=== PATIENT | female | born 1950 | race Caucasian/White ===

== ENCOUNTER 2016-12-16 09:59 | Inpatient (IN) ==
[2016-12-16] MEDS ORDERED: methylPREDNISolone SOD SUC 125 MG/2 ML VIAL IV STA (11:21)
[2016-12-16] MEDS ORDERED: cefTRIAXone 1,000 MG in SODIUM CHLORIDE 0.9% 100 ML IV STA (11:21)
[2016-12-16] MEDS ORDERED: SODIUM CHLORIDE 0.9% 500 ML IV STA (11:21)
[2016-12-16] MEDS ORDERED: ONDANSETRON 4 MG/2 ML VIAL IV STA (11:21)
[2016-12-16] MEDS ORDERED: ONDANSETRON 4 MG/2 ML VIAL ONE (11:25)
[2016-12-16] MEDS ORDERED: methylPREDNISolone SOD SUC 125 MG/2 ML VIAL ONE (11:25)
[2016-12-16] MEDS ORDERED: cefTRIAXone 1,000 MG VIAL ONE (11:25)
[2016-12-16] MEDS ORDERED: ALBUTEROL 2.5 MG/3 ML NEB RESP TX SCH (11:30)
[2016-12-16 11:32] LABS: Basophils % 0.6 % (0.0-0.8); Hematocrit 36.4 VOL% (35.7-47.0); Hemoglobin 12.1 GM/DL (12.0-16.0); Immature Granulocytes % 0.2 %; Immature Granulocytes Absolute 0.01 #; Lymphocytes # 0.5 10*3/uL (1.4-4.0); Lymphocytes % 9.5 % (21.3-54.2); Mean Corpuscular HGB Conc 33.2 GM/DL (32-36); Mean Corpuscular Hemoglobin 32 PG (27-34); Mean Corpuscular Volume 95.8 FL (87-102); Mean Platelet Volume 10.7 FL (9.6-12.0); Monocytes # 1.2 10*3/uL (0.11-0.8); Monocytes % 21.1 % (1.7-12.7); Neutrophils # 3.7 10*3/uL (1.4-7.4); Neutrophils % 68.6 % (38.7-73.9); Platelet Count 172 T/CUMM (130-400); Red Cell Distribution Width 13.6 % (9.3-17.3); White Blood Count 5.5 T/CUMM (4-12)
[2016-12-16 11:38] LABS: PT Patient Result 10.9 SECS
--- NOTE | 2016-12-16 11:44 | Emergency Department Note ---
IClaribel Emily, am scribing for, and in the presence of, Mansoor Sterling MD 11: 20. IAsher Charles R, MD, personally performed the services described in this documentation, ascribed by Fara Sanford in my presence, and it is both accurate and complete . Arrival - Arrival Chief Complaint: Shortness of Breath Stated Complaint: SOB,weak,low O2 ED Nursing Triage Note: PT C/O SHORTNESS OF BREATH AND WEAKNESS X2 DAYS. 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 DAUGHTER STATES O2 SAT BEFORE LEAVING HOME WAS 67%. PT UNAWARE OF INCREASED TEMP TAKEN AT TRIAGE. Mode of Arrival: Wheelchair Limitations: No Limitations Source: Patient, Family (daughter) Time Seen by Provider: 12/16/16 10:44 - History of Present Illness HPI Narrative: Pt is a 66 y/o female who came to ED with c/o SOB that has been ongoing for past 2 days. Pt reports using at home O2 2L but no relief. She is a former smoker. Pt has associated sxs of coughing (nothing coming up), wheezing, and mouth breathing, but denies chest pain. Pt has fever in ED of 101.9, but was unaware of fever at home or even having it. PMHx of CAD: History of RCA stent in October 2013, Alzheimer's, COPD uses inhalers, bronchitis, PNA. Onset (ago): day(s) Consistency: constant Severity: moderate Severity scale (1-10): 6 Quality: fullness Allergies/Adverse Reactions: Allergies Allergy/AdvReac Type Severity Reaction Status Date / Time No Known Allergies Allergy Verified 12/16/16 10:14 Home Medications: Home Medications Medication Instructions Recorded Confirmed Type Albuterol Sulfate [Ventolin HFA] 2 puff INH QID 08/02/14 04/10/16 History Amlodipine Besylate/Benazepril 5 each PO DAILY 08/02/14 04/10/16 History [Lotrel 10-20 mg Capsule] Aspirin [Ecotrin] 81 mg PO DAILY 08/02/14 04/10/16 History Citalopram [CeleXA] 40 mg PO DAILY 08/02/14 04/10/16 History Donepezil [Aricept] 10 mg PO BEDTIME 08/02/14 04/10/16 History Levothyroxine Tab [Synthroid Tab] 50 mcg PO DAILY@0700 08/02/14 04/10/16 History Memantine [Namenda] 10 mg PO BID 08/02/14 04/10/16 History Methocarbamol 750 mg PO Q8H 08/02/14 04/10/16 History Nitroglycerin Sl Tab [Nitrostat] 0.4 mg SL Q5M PRN 08/02/14 04/10/16 History Potassium Chloride [Klor-Con 10] 10 meq PO DAILY 08/02/14 04/10/16 History QUEtiapine [SEROquel] 25 mg PO DAILY 08/02/14 04/10/16 History Rosuvastatin [Crestor] 10 mg PO DAILY 08/02/14 04/10/16 History Tiotropium Inhalation [Spiriva] 18 mcg INH DAILY 08/02/14 04/10/16 History Tramadol HCl [Tramadol Tab] 50 mg PO BID 08/02/14 04/10/16 History Folic Acid Tab 1 mg PO DAILY 08/08/14 04/10/16 History Ferrous Sulfate 325 mg PO BID 06/01/15 04/10/16 History B12/Levomefolate Calcium/B-6 500 mcg PO DAILY 04/10/16 04/10/16 History [Foltx Tablet] Ondansetron Tab [Zofran Tab] 4 mg PO Q6H PRN 04/10/16 04/10/16 History Omeprazole [Prilosec] 40 mg PO BID #60 capsule 04/12/16 Rx Review of System - Review of System 12 point system: reviewed and no additional remarkable complaints except as stated - Review of System Constitutional: Absent: chills, fever (unaware of fever at home) Respiratory: Present: cough, respiratory distress (dyspnea; mouth breathing), wheezing Cardiovascular: Absent: chest pain Gastrointestinal: Absent: abdominal pain, nausea, vomiting Skin: Absent: rash Neurological: Absent: headache Medical,Surgical,& Family Hx - Medical History Cardio: History of: CAD (History of RCA stent in October 2013), Hypertension Psychological: History of: Depression Neurology: History of: Dementia (Alzheimer's) No history of: Seizures HEENT: History of: Eye Problem (CATARACTS), Dental Problems (DENTURES) Endocrine: History of: Thyroid Disorder (takes medication) Rheumatology: History of;: Rheumatoid Arthritis Respiratory: History of: Bronchitis, COPD (uses inhalers), Pneumonia Gastrointestinal: History of: Gastrointestinal Bleed Musculoskeletal: History of: Back/Neck Problems (arthritis) Hematology: History of: Anemia, Bleeding Problems (blood thinners post cardiac stent) Other: History of: 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) - Surgical History Cardiac Surgeries: Sugical HX of: Cardiac Catheterization (1 stent in October [address] SILVA) Thoracic Surgeries: Patient denies;: Organ Transplant, Lobectomy Neurologic Surgeries: Patient denies: Neurologic Surgery HEENT Surgeries: Surgical HX of: Eye Surgery (carlos cataract) Abdominal Surgeries: Surgical HX of: Abdominal Surgery, Cholecystectomy, Colonoscopy, EGD Reproductive Surgeries: Surgical HX of;: Tubal Ligation Patient denies;: Gynecologic Surgery Comment Only: Breast Surgery (R BREAST BX) Orthopedic Surgeries: Surgical HX of;: Orthopedic Surgery (right broken leg) - Family History Family History: Reports;: Family Heart Disease (father and brother), Family Hypertension (mother) Denies;: Family Anesthesia Reaction - Social History Smoking Status: Current every day smoker Frequency of Alcohol Use: None Type of Drug Use: None Marital Status: Single Lives With:: Alone Functional capacity: independent ambulation Exam Vital Signs: Vital Signs Temperature 101.9 F H 12/16/16 10:38 Pulse Rate 86 12/16/16 10:38 Respiratory Rate 20 12/16/16 10:38 Blood Pressure 147/55 12/16/16 10:38 O2 Sat by Pulse Oximetry 77 L 12/16/16 10:09 - General General appearance: alert, in no apparent distress, other (skinny; temporal wasting) - Head Head exam: Present: atraumatic, normocephalic - Eye Eye exam: Present: PERRL, EOMI - ENT ENT exam: Present: mucous membranes moist. Absent: mucous membranes dry - Neck Neck exam: Present: full ROM, trachea midline - Chest Chest inspection: Present: symmetric chest wall rise - Respiratory Respiratory exam: Present: rales, rhonchi (coarse, harsh rhonchi; barely moving any air), wheezes. Absent: normal lung sounds bilaterally (decreased breath sounds, bilaterally) - Cardiovascular Cardiovascular exam: Present: regular rate, normal rhythm, normal heart sounds - Extremities Exam Extremities exam: Present: full ROM. Absent: pedal edema - Neurological Exam Neurological exam: Present: alert, oriented X3, CN II-XII intact. Absent: motor sensory deficit - Psychiatric Psychiatric exam: Present: normal affect, normal mood - Skin Skin exam: Present: warm, dry Course - Consultations Consultation #1: Dr. Carranza will admit patient Time: 13:13 Results - Labs CBC & BMP: 12/16/16 10:33 12/16/16 10:33 Lab Results: I have reviewed the patients labs Critical Care Time Critical Care Time: Yes Total Critical Care Time: 60 Disposition Clinical Impression: COPD (chronic obstructive pulmonary disease), Acute dyspnea, Fever, Hypoxia, Pneumonia Case discussed with: patient, patient's family Disposition: Still a Patient Condition: Guarded Time of Disposition: 13:15
[2016-12-16 11:48] LABS: Alanine Aminotransferase 21 U/L (13-56); Alkaline Phosphatase 85 U/L (45-117); Aspartate Amino Transferase 13 U/L (0-37); Bilirubin,Total < 0.39 MG/DL (0.2-1.0); Blood Urea Nitrogen 41 MG/DL (7-18); Calcium 10.2 MG/DL (8.5-10.1); Total Protein 8.3 G/DL (6.4-8.3)
[2016-12-16 11:49] LABS: Glucose 148 MG/DL (74-106); Magnesium 2.1 MG/DL (1.8-2.4); Osmolality,Calculated 289.5 MOS/KG (273-304); Potassium 4.3 MMOL/L (3.5-5.1); Sodium 139 MMOL/L (136-145); Troponin I Only < 0.015 NG/ML (0.00-0.045)
--- NOTE | 2016-12-16 11:56 | XRay Report ---
Portable chest Date: 12/16/2016 Clinical history: Shortness of breath Comparison: 04/10/2016 Technique: Portable AP sitting chest Findings: The heart is normal in size with calcification in the aortic knob. The lungs are overexpanded with progressive diffuse perihilar parenchymal findings extending to the lung bases. Stable mediastinum and osseous structures. Impression: COPD/bullous emphysema with progressive mild CHF/pneumonitis. PROCEDURE INTERPRETED AT [facility] DEPARTMENT OF RADIOLOGY Final Report Signed by: Dr. Scarlet Greene
[2016-12-16 12:04] LABS: Lactic Acid 1.1 MMOL/L (0.4-2.0)
[2016-12-16 12:06] LABS: Band Neutrophils 2 % (0-10); Hypochromasia 2+; Lymphocytes 6 % (20-55); Microcytosis 2+; Platelet Estimate Adequate; Segmented Neutrophils 73 % (50-85); Total Cells Counted 100
[2016-12-16 12:16] LABS: ABG Base Excess 2.7 MMOL/L (-2.5-2.5); ABG HCO3 26.8 MMOL/L (20-26); ABG Oxygen Saturation 99.4 % (95-100); ABG PCO2 53.8 MM HG (35-48); ABG PH 7.345 (7.35-7.45); ABG TCO2 26.6 MMOL/L (23-27)
[2016-12-16] MEDS ORDERED: ACETAMINOPHEN 500 MG TABLET PO STA (12:52)
--- NOTE | 2016-12-16 14:00 | Order Completion Report ---
See report scanned to EMR
[2016-12-16] MEDS ORDERED: ACETAMINOPHEN 500 MG TABLET ONE (14:04)
[2016-12-16 14:16] LABS: Apearance,Urine Slightly Hazy (Clear); Bacteria,Urine Many /HPF (Few); Bilirubin,Urine Negative (Negative); Blood, Urine Moderate mg/dL (Negative); Glucose,Urine (UA) Negative (Negative); Hyaline Casts,Urine 6 /LPF (0-3); Ketones,Urine 5 mg/dL (Negative); Mucus,Urine Moderate /LPF (Occasional); Nitrite,Urine Negative (Negative); Protein,Urine 30 MG/DL; RBC,Urine <1 /HPF (0-4); Urine Color Yellow (Yellow); Urine Specific Gravity 1.018 (1.001-1.035); WBC,Urine 1 /HPF (0-6)
[2016-12-16] MEDS ORDERED: MORPHINE 2 MG/1 ML SYRINGE IV PRN (14:56)
[2016-12-16] MEDS ORDERED: ONDANSETRON 4 MG/2 ML VIAL IV PRN (14:56)
[2016-12-16] MEDS ORDERED: ENOXAPARIN 30 MG/0.3 ML SYRINGE SUBCUT SCH (15:00)
[2016-12-16] MEDS ORDERED: INFLUENZA VIRUS VACCINE 0.5 ML SYRINGE IM ONE (15:08)
[2016-12-16] MEDS ORDERED: PNEUMOCOCCAL VACCINE (13 VALENT) 0.5 ML SYRINGE IM ONE (15:08)
[2016-12-16] MEDS: methylPREDNISolone SOD SUC 40 MG/1 ML VIAL IV SCH ×2 (15:44→23:57)
[2016-12-16] MEDS: SODIUM CHLORIDE 0.9% 1,000 ML IV SCH (16:06)
[2016-12-16] MEDS: AZITHROMYCIN INJ 500 MG in SODIUM CHLORIDE 0.9% 250 ML IV SCH (16:07)
[2016-12-16] MEDS ORDERED: ONDANSETRON 4 MG TABLET PO PRN (16:42)
--- NOTE | 2016-12-16 16:49 | Internal Med History&Physical ---
Assessment and Plan (1) Pneumonia Status: Acute Assessment and plan: 66-year-old female admitted to acute care * Pneumonia. Patient appears to have bilateral pneumonia with elevated temp. She has been started on broad-spectrum antibiotics after cultures were done. She will require oxygen and nebulizer treatments. * Acute exacerbation of COPD. Patient has bilateral rhonchi. Her initial PCO2 was quite low. She does retain some CO2. She has been started on IV steroids. * Hypertension. Blood pressure is low. Will hold her blood pressure medications for now * Coronary artery disease. Stable * Squamous cell carcinoma of vocal cord. She had recent workup which was negative * Hypothyroidism. Will continue thyroid replacement * Discussed with patient again about smoking cessation * Discussed with patient and her family Current Visit: Yes (2) COPD with acute exacerbation Status: Acute Current Visit: Yes (3) Alzheimer's dementia Status: Acute Current Visit: No (4) Coronary artery disease Status: Acute Current Visit: No (5) Hypertension Status: Acute Current Visit: No (6) Hypothyroidism Status: Acute Current Visit: No (7) Squamous cell carcinoma of vocal cord Status: Acute Current Visit: No History of Present Illness Chief complaint: Shortness of breath with weakness History of present illness: Ms. Bowie is a 66 year old female with history of multiple medical problems including COPD, hypertension, hypothyroidism, Alzheimer's type dementia, coronary artery disease, GERD, squamous cell carcinoma of vocal cord who was admitted through the emergency room with shortness of breath over last 4-5 days. She has been using home oxygen but there was no relief. She was also using nebulizer treatments. She has been smoking off and on throughout her life. She has been coughing a lot which has been on productive. She denies any chest pain. Patient was febrile in the emergency room with temp of 101.9. She denied any fever or chills at home. She denies any nausea or vomiting. Patient lives at with her family members. No alcohol use. Home Medications Medication Instructions Recorded Confirmed Type Albuterol Sulfate [Ventolin HFA] 2 puff INH QID 08/02/14 12/16/16 History Amlodipine Besylate/Benazepril 5 each PO DAILY 08/02/14 12/16/16 History [Lotrel 10-20 mg Capsule] Aspirin [Ecotrin] 81 mg PO DAILY 08/02/14 12/16/16 History Citalopram [CeleXA] 40 mg PO DAILY 08/02/14 12/16/16 History Donepezil [Aricept] 10 mg PO BEDTIME 08/02/14 12/16/16 History Levothyroxine Tab [Synthroid Tab] 50 mcg PO DAILY@0700 08/02/14 12/16/16 History Memantine [Namenda] 10 mg PO BID 08/02/14 12/16/16 History Methocarbamol 750 mg PO Q6H 08/02/14 12/16/16 History Potassium Chloride [Klor-Con 10] 10 meq PO DAILY 08/02/14 12/16/16 History QUEtiapine [SEROquel] 25 mg PO DAILY 08/02/14 12/16/16 History Rosuvastatin [Crestor] 10 mg PO DAILY 08/02/14 12/16/16 History Tiotropium Inhalation [Spiriva] 18 mcg INH DAILY 08/02/14 12/16/16 History Tramadol HCl [Tramadol Tab] 50 mg PO BID 08/02/14 12/16/16 History Folic Acid Tab 1 mg PO DAILY 08/08/14 12/16/16 History Ferrous Sulfate 325 mg PO BID 06/01/15 12/16/16 History B12/Levomefolate Calcium/B-6 500 mcg PO DAILY 04/10/16 12/16/16 History [Foltx Tablet] Ondansetron Tab [Zofran Tab] 8 mg PO Q6H PRN 04/10/16 12/16/16 History Omeprazole [Prilosec] 40 mg PO BID #60 capsule 04/12/16 12/16/16 Rx Albuterol Sulfate [Albuterol Neb] 2.5 mg INH QID 12/16/16 12/16/16 History Thiamine Tab [Vitamin B1 Tab] 250 mg PO DAILY 12/16/16 12/16/16 History Vitamin E Acetate [Vitamin E] 400 units PO DAILY 12/16/16 12/16/16 History Allergies Allergy/AdvReac Type Severity Reaction Status Date / Time No Known Allergies Allergy Verified 12/16/16 10:14 Medical,Surgical,& Family Hx - Medical History Cardio: History of: CAD (History of RCA stent in October 2013), Hypertension Psychological: History of: Depression Neurology: History of: Dementia (Alzheimer's) No history of: Seizures HEENT: History of: Eye Problem (CATARACTS), Dental Problems (DENTURES), Oral Cancer (Squamous cell carcinoma of vocal cord) Endocrine: History of: Thyroid Disorder (takes medication) Respiratory: History of: Bronchitis, COPD (uses inhalers), Pneumonia Gastrointestinal: History of: GERD, Gastrointestinal Bleed, Polyps Musculoskeletal: History of: Back/Neck Problems (arthritis) Hematology: History of: Anemia, Bleeding Problems (blood thinners post cardiac stent) Other: History of: 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) - Surgical History Cardiac Surgeries: Sugical HX of: Cardiac Catheterization (1 stent in October [address] SILVA) Thoracic Surgeries: Patient denies;: Organ Transplant, Lobectomy Neurologic Surgeries: Patient denies: Neurologic Surgery HEENT Surgeries: Surgical HX of: Eye Surgery (carlos cataract) Abdominal Surgeries: Surgical HX of: Abdominal Surgery, Cholecystectomy, Colonoscopy, EGD Reproductive Surgeries: Surgical HX of;: Breast Surgery (R BREAST BX), Tubal Ligation Patient denies;: Gynecologic Surgery Orthopedic Surgeries: Surgical HX of;: Orthopedic Surgery (right broken leg) - Family History Family History: Reports;: Family Heart Disease (father and brother), Family Hypertension (mother) Denies;: Family Anesthesia Reaction - Social History Smoking Status: Current every day smoker Frequency of Alcohol Use: None Type of Drug Use: None Marital Status: Single Lives With:: Children Functional capacity: independent ambulation 12 point system: reviewed and no additional remarkable complaints except as stated (As mentioned in HPI) Exam - Constitutional Vitals: Period Temp Pulse Resp BP Sys/Moore Pulse Ox Last 24 Hr 99.2 F-101.9 F 75-89 18-22 115-147/47-62 77-99 Exam: Examination: GENERAL: NAD. HEENT: PERRLA. EOMI. Mucous membranes are moist. Tongue is coated NECK: Neck is supple. No JVD. No carotid bruit. No thyromegaly. CVS: Regular rate and rhythm. S1 and S2 are normal. RESPIRATORY: Poor air entry. There are bilateral rhonchi present in upper and lower lung [place] ABDOMEN: Soft and nontender. Bowel sounds are present. No hepatosplenomegaly. EXT: No edema. Peripheral pulses are present. 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 Cranial nerves II through XII are grossly intact. Motor strength is 4/5 SKIN: Warm and dry. MSK: No obvious deformity. Results - Labs CBC & BMP: 12/16/16 10:33 12/16/16 10:33 Lab Results: I have reviewed the past 24 hour labs
[2016-12-16] MEDS: METHOCARBAMOL 750 MG TABLET PO SCH ×2 (16:54→23:57)
[2016-12-16] MEDS: POTASSIUM CHLORIDE 10 MEQ TABLET PO SCH (17:28)
[2016-12-16] MEDS: ALBUTEROL 2.5 MG/3 ML NEB RESP TX SCH ×2 (18:07→19:25)
[2016-12-16] MEDS: FERROUS SULFATE 325 MG TABLET PO SCH (20:59)
[2016-12-16] MEDS: DONEPEZIL 10 MG TABLET PO SCH (20:59)
[2016-12-16] MEDS: PANTOPRAZOLE 40 MG TABLET PO SCH (20:59)
[2016-12-16] MEDS: traMADol 50 MG TABLET PO SCH (21:00)
[2016-12-16] MEDS: MEMANTINE 10 MG TABLET PO SCH (21:00)
[2016-12-16] MEDS: DOCUSATE SODIUM 100 MG CAPSULE PO SCH (21:00)
[2016-12-17 03:52] LABS: Basophils % 0.3 % (0.0-0.8); Hematocrit 32.5 VOL% (35.7-47.0); Hemoglobin 10.8 GM/DL (12.0-16.0); Immature Granulocytes % 0.3 %; Immature Granulocytes Absolute 0.01 #; Lymphocytes # 0.3 10*3/uL (1.4-4.0); Mean Corpuscular HGB Conc 33.2 GM/DL (32-36); Mean Corpuscular Hemoglobin 31 PG (27-34); Mean Corpuscular Volume 94.2 FL (87-102); Mean Platelet Volume 10.9 FL (9.6-12.0); Monocytes # 0.4 10*3/uL (0.11-0.8); Monocytes % 10.5 % (1.7-12.7); Neutrophils # 2.7 10*3/uL (1.4-7.4); Neutrophils % 79.9 % (38.7-73.9); Platelet Count 157 T/CUMM (130-400); Red Blood Count 3.45 MC/CUMM (3.8-5.5); Red Cell Distribution Width 13.2 % (9.3-17.3); White Blood Count 3.4 T/CUMM (4-12)
[2016-12-17 04:32] LABS: Albumin 2.7 G/DL (3.4-5.0); Bilirubin,Total 0.5 MG/DL (0.2-1.0); Magnesium 2.1 MG/DL (1.8-2.4); Osmolality,Calculated 285.3 MOS/KG (273-304); Potassium 3.9 MMOL/L (3.5-5.1); Risk Ratio 2.24; Total Protein 6.3 G/DL (6.4-8.3); VLDL CHOLESTEROL 13.6 MG/DL
[2016-12-17 05:36] LABS: Band Neutrophils 1 % (0-10); Lymphocytes 12 % (20-55); Segmented Neutrophils 77 % (50-85); Total Cells Counted 100
[2016-12-17 05:37] LABS: Hypochromasia 1+; Microcytosis 1+; Platelet Estimate Adequate
[2016-12-17] MEDS: METHOCARBAMOL 750 MG TABLET PO SCH ×3 (06:34→17:21)
[2016-12-17] MEDS: LEVOTHYROXINE 50 MCG TABLET PO SCH (06:34)
[2016-12-17] MEDS: methylPREDNISolone SOD SUC 40 MG/1 ML VIAL IV SCH ×2 (06:35→15:24)
[2016-12-17] MEDS: ALBUTEROL/IPRATROPIUM 3 ML NEB RESP TX PRN (07:56)
--- NOTE | 2016-12-17 08:41 | XRay Report ---
XR chest 2V Date: 12/17/2016 4:00 AM History: Shortness of breath Comparison: 12/16/2016 Technique: PA and lateral chest Findings: The heart remains small and compressed by the over expanded lungs. Diffuse arterial calcifications are noted. Chronic scarring in the lungs with apparent nipple shadows at the lung bases. Decreased parenchymal findings. Deviation of the trachea to the right at the thoracic inlet. Impression: COPD with chronic scarring. Improved mild CHF/pneumonitis. Apparent nipple shadows at the lung bases. Deviation of the trachea to the right with prior CT description of left thyroid mass. PROCEDURE INTERPRETED AT [facility] DEPARTMENT OF RADIOLOGY Final Report Signed by: Dr. Scarlet Greene
[2016-12-17] MEDS: PANTOPRAZOLE 40 MG VIAL IV SCH (08:51)
[2016-12-17] MEDS: DOCUSATE SODIUM 100 MG CAPSULE PO SCH ×2 (08:52→20:39)
[2016-12-17] MEDS: NICOTINE 21 MG/24 HR PATCH TRANSDERM SCH (08:52)
[2016-12-17] MEDS: ASPIRIN EC 81 MG TABLET PO SCH (08:52)
[2016-12-17] MEDS: FOLIC ACID 1 MG TABLET PO SCH (08:52)
[2016-12-17] MEDS: THIAMINE 100 MG TABLET PO SCH (08:52)
[2016-12-17] MEDS: FERROUS SULFATE 325 MG TABLET PO SCH ×2 (08:53→20:39)
[2016-12-17] MEDS: traMADol 50 MG TABLET PO SCH ×2 (08:53→20:39)
[2016-12-17] MEDS: MEMANTINE 10 MG TABLET PO SCH ×2 (08:53→20:39)
[2016-12-17] MEDS: POTASSIUM CHLORIDE 10 MEQ TABLET PO SCH (08:53)
[2016-12-17] MEDS: CITALOPRAM 20 MG TABLET PO SCH (08:53)
[2016-12-17] MEDS: QUEtiapine 25 MG TABLET PO SCH (08:53)
[2016-12-17] MEDS: ROSUVASTATIN 10 MG TABLET PO SCH (08:53)
[2016-12-17] MEDS: VITAMIN E 400 UNIT CAPSULE PO SCH (08:54)
[2016-12-17] MEDS: PANTOPRAZOLE 40 MG TABLET PO SCH (08:54)
--- NOTE | 2016-12-17 08:56 | Internal Med Progress Note ---
Assessment and Plan (1) Pneumonia Status: Acute Assessment and plan: 66-year-old female admitted to acute care * Pneumonia. Clinically better. Cultures are pending * Acute exacerbation of COPD. Continue current treatment * Hypertension. Blood pressure is better controlled * Coronary artery disease. Stable * Squamous cell carcinoma of vocal cord. She had recent workup which was negative for any recurrent * Hypothyroidism. Will continue thyroid replacement * Discussed with patient again about smoking cessation. We will place her on nicotine patch Current Visit: Yes (2) COPD with acute exacerbation Status: Acute Current Visit: Yes (3) Alzheimer's dementia Status: Acute Current Visit: No (4) Coronary artery disease Status: Acute Current Visit: No (5) Hypertension Status: Acute Current Visit: No (6) Hypothyroidism Status: Acute Current Visit: No (7) Squamous cell carcinoma of vocal cord Status: Acute Current Visit: No Internal Medicine - PN: Subj Interval history: She feels much better this morning. She still has shortness of breath. No chest pain. No nausea or vomiting Exam (Progress Note) - Constitutional Vitals: Period Temp Pulse Resp BP Sys/Moore Pulse Ox Last 24 Hr 97.0 F-101.9 F 64-89 16-22 108-152/47-65 77-99 Exam: Examination: GENERAL: NAD. HEENT: PERRLA. EOMI. NECK: Neck is supple. CVS: Regular rate and rhythm. S1 and S2 are normal. RESPIRATORY: Better air entry with bilateral rhonchi ABDOMEN: Soft and nontender. Bowel sounds are present. No hepatosplenomegaly. EXT: No edema. Peripheral pulses are present. 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 Results - Labs CBC & BMP: 12/17/16 03:22 12/17/16 03:22 Lab Results: I have reviewed the past 24 hour labs
[2016-12-17] MEDS ORDERED: [UNRECOGNIZED DRUG - OTHER] PO SCH (09:00)
[2016-12-17] MEDS ORDERED: AMLODIPINE BESYLATE PO SCH (09:00)
[2016-12-17] MEDS ORDERED: BENAZEPRIL PO SCH (09:00)
[2016-12-17] MEDS ORDERED: LEVOMEFOLATE CALCIUM PO SCH (09:00)
[2016-12-17] MEDS ORDERED: IPRATROPIUM 500 MCG/2.5 ML NEB RESP TX SCH (09:00)
[2016-12-17] MEDS ORDERED: B12 PO SCH (09:00)
[2016-12-17] MEDS ORDERED: B6 PO SCH (09:00)
--- NOTE | 2016-12-17 09:27 | Physician Query Form ---
CLICK EDIT DOCUMENT TO SELECT QUERY ANSWER --> OK --> SIGN Sasha Mock RN, CCDS Certified Clinical Hat And Cap Opener W) [phone] (f) [phone] [email or web address]: Make your selection(s) from the choices in EACH section by typing an "x" and enter comments in the comment section. Please use your independent medical judgment in providing your response. This request does not imply that any particular answer is desired or expected. CLINICAL INDICATORS: (Providers should not edit this section) The medical record indicates that the patient was admitted with COPD exacerbation, pneumonia, "Pt reports using at home O2 2L but no relief", "Daughter states 02 sat before leaving home was 67%", Hypoxia, ABG's pH 7.345, pCO2 53.8, p0 170.0 and the patient was treated with 1-2 liters per NC. -------- -----ER vital signs---respirations of 20---Sat's 77 L If possible, please further clarify the type and acuity of respiratory diagnosis : ACUITY: ( ) Acute ( ) Chronic (x ) Acute on Chronic TYPE: ( ) Respiratory failure with hypoxia ( ) Respiratory failure with hypercapnia ( ) Respiratory Arrest ( ) Postprocedural/postoperative respiratory failure ( ) Respiratory Insufficiency ( ) ARDS (Adult/Acute Respiratory Distress Syndrome) ( x) Other, please specify: Acute exacerbation of COPD. Chronic smoker. Pneumonia ( ) Clinically unable to determine Recognized criteria for respiratory failure PH <7.35 or >7.45 PO2 <60 PCO2 >50 RR >24 O2 Sat <90% on RA or <95% on O2 Use of accessory muscles Unable to speak in full sentences Intubation is not required COMMENTS: PLEASE ALSO DOCUMENT RESPONSE IN PROGRESS NOTES AND/OR DISCHARGE SUMMARY Use of terms such as suspected, likely, or probable (associated with a specific diagnosis that is being evaluated, monitored, or treated as if it exists) are acceptable and can be restated in the discharge summary if not ruled out. MTDD
[2016-12-17] MEDS: SODIUM CHLORIDE 0.9% 1,000 ML IV SCH ×2 (11:03→22:11)
[2016-12-17] MEDS: ALBUTEROL 2.5 MG/3 ML NEB RESP TX SCH (12:00)
[2016-12-17] MEDS: MULTIVITAMIN (BEROCCA) TABLET PO SCH (15:25)
[2016-12-17] MEDS: AZITHROMYCIN INJ 500 MG in SODIUM CHLORIDE 0.9% 250 ML IV SCH (15:25)
[2016-12-17] MEDS: ALBUTEROL/IPRATROPIUM 3 ML NEB RESP TX SCH (19:01)
[2016-12-17] MEDS: ENOXAPARIN 40 MG/0.4 ML SYRINGE SUBCUT SCH (20:39)
[2016-12-17] MEDS: DONEPEZIL 10 MG TABLET PO SCH (20:39)
[2016-12-18] MEDS: METHOCARBAMOL 750 MG TABLET PO SCH ×4 (00:31→15:59)
[2016-12-18] MEDS: PANTOPRAZOLE 40 MG TABLET PO SCH ×3 (00:31→20:32)
[2016-12-18] MEDS: methylPREDNISolone SOD SUC 40 MG/1 ML VIAL IV SCH ×3 (00:31→18:03)
[2016-12-18] MEDS: ALBUTEROL/IPRATROPIUM 3 ML NEB RESP TX PRN (00:59)
[2016-12-18] MEDS: ACETAMINOPHEN 325 MG TABLET PO PRN ×2 (05:15→19:44)
[2016-12-18 05:18] LABS: Hematocrit 32.2 VOL% (35.7-47.0); Hemoglobin 10.6 GM/DL (12.0-16.0); Immature Granulocytes % 0.8 %; Immature Granulocytes Absolute 0.04 #; Lymphocytes # 0.3 10*3/uL (1.4-4.0); Lymphocytes % 7.1 % (21.3-54.2); Mean Corpuscular HGB Conc 32.9 GM/DL (32-36); Mean Corpuscular Hemoglobin 32 PG (27-34); Mean Corpuscular Volume 97.3 FL (87-102); Mean Platelet Volume 10.7 FL (9.6-12.0); Monocytes # 0.4 10*3/uL (0.11-0.8); Monocytes % 8.8 % (1.7-12.7); Neutrophils % 83.3 % (38.7-73.9); Platelet Count 178 T/CUMM (130-400); Red Blood Count 3.31 MC/CUMM (3.8-5.5); Red Cell Distribution Width 13.5 % (9.3-17.3); White Blood Count 4.8 T/CUMM (4-12)
[2016-12-18 05:50] LABS: Calcium 9.1 MG/DL (8.5-10.1); Potassium 4.1 MMOL/L (3.5-5.1)
[2016-12-18] MEDS: LEVOTHYROXINE 50 MCG TABLET PO SCH (06:44)
[2016-12-18] MEDS: ALBUTEROL/IPRATROPIUM 3 ML NEB RESP TX SCH ×4 (07:54→19:03)
[2016-12-18] MEDS: THIAMINE 100 MG TABLET PO SCH (08:15)
[2016-12-18] MEDS: VITAMIN E 400 UNIT CAPSULE PO SCH (08:15)
[2016-12-18] MEDS: MULTIVITAMIN (BEROCCA) TABLET PO SCH (08:15)
[2016-12-18] MEDS: traMADol 50 MG TABLET PO SCH ×2 (08:16→20:32)
[2016-12-18] MEDS: CITALOPRAM 20 MG TABLET PO SCH (08:16)
[2016-12-18] MEDS: QUEtiapine 25 MG TABLET PO SCH (08:16)
[2016-12-18] MEDS: FOLIC ACID 1 MG TABLET PO SCH (08:16)
[2016-12-18] MEDS: FERROUS SULFATE 325 MG TABLET PO SCH ×2 (08:16→20:32)
[2016-12-18] MEDS: ROSUVASTATIN 10 MG TABLET PO SCH (08:16)
[2016-12-18] MEDS: POTASSIUM CHLORIDE 10 MEQ TABLET PO SCH (08:16)
[2016-12-18] MEDS: MEMANTINE 10 MG TABLET PO SCH ×2 (08:16→20:32)
[2016-12-18] MEDS: NICOTINE 21 MG/24 HR PATCH TRANSDERM SCH (08:17)
[2016-12-18] MEDS: ASPIRIN EC 81 MG TABLET PO SCH (08:17)
[2016-12-18] MEDS: DOCUSATE SODIUM 100 MG CAPSULE PO SCH ×2 (08:17→20:32)
[2016-12-18] MEDS: PANTOPRAZOLE 40 MG VIAL IV SCH (08:18)
--- NOTE | 2016-12-18 09:05 | Internal Med Progress Note ---
Assessment and Plan (1) Pneumonia Status: Acute Assessment and plan: 66-year-old female admitted to acute care * Pneumonia. Clinically better. Continue antibiotic * Acute exacerbation of COPD. Taper steroid * Hypertension. Blood pressure is better controlled * Coronary artery disease. Stable * Squamous cell carcinoma of vocal cord. Stable * Hypothyroidism. Will continue thyroid replacement Current Visit: Yes (2) COPD with acute exacerbation Status: Acute Current Visit: Yes (3) Alzheimer's dementia Status: Acute Current Visit: No (4) Coronary artery disease Status: Acute Current Visit: No (5) Hypertension Status: Acute Current Visit: No (6) Hypothyroidism Status: Acute Current Visit: No (7) Squamous cell carcinoma of vocal cord Status: Acute Current Visit: No Internal Medicine - PN: Subj Interval history: She is feeling better today. No chest pain or shortness of breath. Exam (Progress Note) - Constitutional Vitals: Period Temp Pulse Resp BP Sys/Moore Pulse Ox Last 24 Hr 97.1 F-98.2 F 61-92 16-21 127-161/57-84 93-100 Exam: Examination: GENERAL: NAD. NECK: Neck is supple. CVS: Regular rate and rhythm. S1 and S2 are normal. RESPIRATORY: Better air entry with bilateral rhonchi ABDOMEN: Soft and nontender. EXT: No edema. Peripheral pulses are present. DIABETES CLINICAL MANAGER: No change MSK: No obvious deformity. Results - Labs CBC & BMP: 12/18/16 04:54 12/18/16 04:54 Lab Results: I have reviewed the past 24 hour labs
[2016-12-18] MEDS: AZITHROMYCIN INJ 500 MG in SODIUM CHLORIDE 0.9% 250 ML IV SCH (14:03)
[2016-12-18] MEDS ORDERED: BENZONATATE 100 MG CAPSULE PO PRN (15:09)
[2016-12-18] MEDS: ENOXAPARIN 40 MG/0.4 ML SYRINGE SUBCUT SCH (20:31)
[2016-12-18] MEDS: DONEPEZIL 10 MG TABLET PO SCH (20:32)
[2016-12-19] MEDS: METHOCARBAMOL 750 MG TABLET PO SCH ×4 (00:30→16:09)
[2016-12-19] MEDS: ACETAMINOPHEN 325 MG TABLET PO PRN ×2 (03:16→08:36)
[2016-12-19 05:13] LABS: Calcium 8.5 MG/DL (8.5-10.1); Osmolality,Calculated 283.3 MOS/KG (273-304); Potassium 4.4 MMOL/L (3.5-5.1)
[2016-12-19] MEDS: methylPREDNISolone SOD SUC 40 MG/1 ML VIAL IV SCH (06:19)
[2016-12-19] MEDS: LEVOTHYROXINE 50 MCG TABLET PO SCH (06:19)
[2016-12-19] MEDS: ALBUTEROL/IPRATROPIUM 3 ML NEB RESP TX SCH ×4 (07:27→19:40)
[2016-12-19] MEDS: NICOTINE 21 MG/24 HR PATCH TRANSDERM SCH (08:34)
[2016-12-19] MEDS: MULTIVITAMIN (BEROCCA) TABLET PO SCH (08:34)
[2016-12-19] MEDS: FOLIC ACID 1 MG TABLET PO SCH (08:35)
[2016-12-19] MEDS: CITALOPRAM 20 MG TABLET PO SCH (08:35)
[2016-12-19] MEDS: FERROUS SULFATE 325 MG TABLET PO SCH ×2 (08:35→22:24)
[2016-12-19] MEDS: QUEtiapine 25 MG TABLET PO SCH (08:35)
[2016-12-19] MEDS: VITAMIN E 400 UNIT CAPSULE PO SCH (08:35)
[2016-12-19] MEDS: THIAMINE 100 MG TABLET PO SCH (08:35)
[2016-12-19] MEDS: DOCUSATE SODIUM 100 MG CAPSULE PO SCH ×2 (08:35→22:21)
[2016-12-19] MEDS: PANTOPRAZOLE 40 MG TABLET PO SCH ×2 (08:35→22:24)
[2016-12-19] MEDS: traMADol 50 MG TABLET PO SCH ×2 (08:36→22:21)
[2016-12-19] MEDS: ROSUVASTATIN 10 MG TABLET PO SCH (08:36)
[2016-12-19] MEDS: POTASSIUM CHLORIDE 10 MEQ TABLET PO SCH (08:36)
[2016-12-19] MEDS: ASPIRIN EC 81 MG TABLET PO SCH (08:36)
[2016-12-19] MEDS: amLODIPine 5 MG TABLET PO SCH (08:36)
[2016-12-19] MEDS: MEMANTINE 10 MG TABLET PO SCH ×2 (08:36→22:21)
--- NOTE | 2016-12-19 08:51 | XRay Report ---
XR chest 2V Date: 12/19/2016 4:00 AM History: Pneumonia Comparison: 12/17/2016 Technique: PA and lateral chest Findings: The heart is normal in size with diffuse arterial calcifications. The lungs are overexpanded with chronic scarring. Residual atelectasis/infiltration at the left lung base with ill-defined density. Deviation of the trachea to the right at the thoracic inlet. Impression: COPD with chronic scarring. Residual atelectasis/infiltration at the left lung base with indeterminate small density which appears to project somewhat low for nipple shadow and continued follow-up chest x-ray is recommended to document clearing. Deviation of the trachea to the right with previously noted left thyroid mass. PROCEDURE INTERPRETED AT [facility] DEPARTMENT OF RADIOLOGY Final Report Signed by: Dr. Scarlet Greene
[2016-12-19] MEDS: PANTOPRAZOLE 40 MG VIAL IV SCH (10:56)
--- NOTE | 2016-12-19 11:31 | Internal Med Progress Note ---
Assessment and Plan (1) Pneumonia Status: Acute Assessment and plan: 66-year-old female admitted to acute care * Pneumonia. Clinically better. Continue antibiotic. Repeat chest x-ray noted * Acute exacerbation of COPD. Will change to p.o. steroids. Hopefully home in the morning. She will require oxygen at home * Hypertension. Blood pressure is better controlled * Coronary artery disease. Stable * Squamous cell carcinoma of vocal cord. Stable * Hypothyroidism. Will continue thyroid replacement Current Visit: Yes (2) COPD with acute exacerbation Status: Acute Current Visit: Yes (3) Alzheimer's dementia Status: Acute Current Visit: No (4) Coronary artery disease Status: Acute Current Visit: No (5) Hypertension Status: Acute Current Visit: No (6) Hypothyroidism Status: Acute Current Visit: No (7) Squamous cell carcinoma of vocal cord Status: Acute Current Visit: No Internal Medicine - PN: Subj Interval history: She is feeling better today. No chest pain or shortness of breath.She wants to go home soon Exam (Progress Note) - Constitutional Vitals: Period Temp Pulse Resp BP Sys/Moore Pulse Ox Last 24 Hr 96.8 F-98.6 F 52-85 16-20 118-146/60-70 92-99 Exam: Examination: GENERAL: NAD. NECK: Neck is supple. CVS: Regular rate and rhythm. S1 and S2 are normal. RESPIRATORY: Better air entry with bilateral rhonchi ABDOMEN: Soft and nontender. EXT: No edema. Peripheral pulses are present. 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 Results - Labs CBC & BMP: 12/18/16 04:54 12/19/16 03:34 Lab Results: I have reviewed the past 24 hour labs
[2016-12-19] MEDS: AZITHROMYCIN INJ 500 MG in SODIUM CHLORIDE 0.9% 250 ML IV SCH (16:08)
[2016-12-19] MEDS: ENOXAPARIN 40 MG/0.4 ML SYRINGE SUBCUT SCH (22:21)
[2016-12-19] MEDS: predniSONE 10 MG TABLET PO SCH (22:21)
[2016-12-19] MEDS: DONEPEZIL 10 MG TABLET PO SCH (22:21)
[2016-12-20] MEDS: METHOCARBAMOL 750 MG TABLET PO SCH ×2 (00:49→06:34)
[2016-12-20 06:08] LABS: Calcium 8.6 MG/DL (8.5-10.1); Osmolality,Calculated 280.4 MOS/KG (273-304); Potassium 4.3 MMOL/L (3.5-5.1)
[2016-12-20 06:33] LABS: Basophils % 0.2 % (0.0-0.8); Eosinophils % 0.2 % (0.00-10.9); Hematocrit 32.6 VOL% (35.7-47.0); Hemoglobin 10.8 GM/DL (12.0-16.0); Immature Granulocytes Absolute 0.06 #; Lymphocytes # 0.8 10*3/uL (1.4-4.0); Lymphocytes % 12.5 % (21.3-54.2); Mean Corpuscular HGB Conc 33.1 GM/DL (32-36); Mean Corpuscular Hemoglobin 31 PG (27-34); Mean Corpuscular Volume 94.8 FL (87-102); Mean Platelet Volume 10.9 FL (9.6-12.0); Monocytes # 0.6 10*3/uL (0.11-0.8); Monocytes % 10.3 % (1.7-12.7); Neutrophils # 4.6 10*3/uL (1.4-7.4); Neutrophils % 75.8 % (38.7-73.9); Platelet Count 200 T/CUMM (130-400); Red Blood Count 3.44 MC/CUMM (3.8-5.5); Red Cell Distribution Width 13.6 % (9.3-17.3)
[2016-12-20] MEDS: LEVOTHYROXINE 50 MCG TABLET PO SCH (06:34)
[2016-12-20 06:46] LABS: Band Neutrophils 2 % (0-10); Lymphocytes 16 % (20-55); Myelocytes 2 %; Segmented Neutrophils 75 % (50-85); Total Cells Counted 100
[2016-12-20 06:47] LABS: Anisocytosis 1+; Hypochromasia 1+; Platelet Estimate Normal; Spherocytes Few
[2016-12-20] MEDS: ALBUTEROL/IPRATROPIUM 3 ML NEB RESP TX SCH (07:40)
[2016-12-20] MEDS: SODIUM CHLORIDE 0.9% 1,000 ML IV SCH (07:40)
[2016-12-20 07:43] VITALS: BP 150/69
--- NOTE | 2016-12-20 08:17 | Discharge Summary ---
Hospital Course - Hospital Course Hospital Course: Patient is a 66-year-old female with history of multiple medical problems including COPD, hypertension, hypothyroidism, dementia, coronary artery disease , GERD, squamous cell carcinoma of vocal cord who was admitted with shortness of breath and pneumonia. Patient also had acute exacerbation of COPD. She was started on IV steroids, nebulizer treatment and antibiotics. She has gradually improved over last 4 days. Discussed with her again about smoking cessation in detail along with her family members. She has decided to quit smoking again. She has been using nicotine patches during the hospital stay. She is ready to be discharged home. I will see her in the office in about 10 days and repeat a chest x-ray. She will continue on her home medications. She will also be sent on 5 days of antibiotics and about 10 days of steroids in a tapering dose. This was discussed with patient and her family member Diagnosis - Discharge Diagnosis (1) Pneumonia Status: Acute (2) COPD with acute exacerbation Status: Acute (3) Alzheimer's dementia Status: Acute (4) Coronary artery disease Status: Acute (5) Hypertension Status: Acute (6) Hypothyroidism Status: Acute (7) Squamous cell carcinoma of vocal cord Status: Acute Discharge Plan - Discharge Data Disposition: Disch To Home/Self Care Condition at Discharge: Stable Discharge Diet: advance to your usual diet Activity: resume usual activities as tolerated - Discharge Medications New Nicotine 21 mg/24 Hr Patch [Nicoderm CQ 21 mg/24 hr Patch] 1 patch TRANSDERM DAILY patch Benzonatate [Tessalon] 200 mg PO TID PRN #20 capsule PRN Reason: Cough Cefuroxime Tab [Ceftin] 500 mg PO BID #10 tablet predniSONE TAB [PredniSONE] 10 mg PO BID #14 tablet Continue QUEtiapine [SEROquel] 25 mg PO DAILY Methocarbamol 750 mg PO Q6H Potassium Chloride [Klor-Con 10] 10 meq PO DAILY Donepezil [Aricept] 10 mg PO BEDTIME Tramadol HCl [Tramadol Tab] 50 mg PO BID Tiotropium Inhalation [Spiriva] 18 mcg INH DAILY Aspirin [Ecotrin] 81 mg PO DAILY Albuterol Sulfate [Ventolin HFA] 2 puff INH QID Rosuvastatin [Crestor] 10 mg PO DAILY Memantine [Namenda] 10 mg PO BID Levothyroxine Tab [Synthroid Tab] 50 mcg PO DAILY@0700 Citalopram [CeleXA] 40 mg PO DAILY Folic Acid Tab 1 mg PO DAILY Ferrous Sulfate 325 mg PO BID B12/Levomefolate Calcium/B-6 [Foltx Tablet] 500 mcg PO DAILY Omeprazole [Prilosec] 40 mg PO BID #60 capsule Thiamine Tab [Vitamin B1 Tab] 250 mg PO DAILY Albuterol Sulfate [Albuterol Neb] 2.5 mg INH QID Ondansetron Tab [Zofran Tab] 8 mg PO Q6H PRN PRN Reason: Nausea Vitamin E Acetate [Vitamin E] 400 units PO DAILY Amlodipine Besylate 5 mg PO DAILY - Follow Up or Referral - Forms/Instructions Additional Discharge Instructions: Appointment at the office in 10 days with TCM. Chest x-ray. Call in medications on discharge Exam - Constitutional Vitals: Period Temp Pulse Resp BP Sys/Moore Pulse Ox Last 24 Hr 96.3 F-98.6 F 52-66 18-20 129-153/62-70 9-99 Exam: Examination: GENERAL: NAD. NECK: Neck is supple. CVS: Regular rate and rhythm. S1 and S2 are normal. RESPIRATORY: Better air entry ABDOMEN: Soft and nontender. EXT: No edema. Discharge Results Procedures and tests throughout hospitalization: Pending Orders 12/16/16 10:33 Blood Culture Stat Labs on day of discharge: Labs from last 24 hours 12/20/16 12/20/16 04:22 04:22 WBC 6.0 RBC 3.44 L Hgb 10.8 L Hct 32.6 L MCV 94.8 MCH 31 MCHC 33.1 RDW 13.6 Plt Count 200 MPV 10.9 Neut % (Auto) 75.8 H Lymph % (Auto) 12.5 L Lamar % (Auto) 10.3 Eos % (Auto) 0.2 Baso % (Auto) 0.2 Neut # (Auto) 4.6 Lymph # (Auto) 0.8 L Lamar # (Auto) 0.6 Eos # (Auto) 0.0 Baso # (Auto) 0.0 Total Counted 100 Immature Gran % 1.0 Nucleated RBC % 0.0 Immature Gran # 0.06 Segmented Neutrophils 75 Band Neutrophils 2 Lymphocytes 16 L Monocytes 5 Myelocytes 2 Nucleated RBCs # 0.00 Platelet Estimate Normal Immature Plt Fraction 0.0 Hypochromasia 1+ Anisocytosis 1+ Spherocytes Few Sodium 140 Potassium 4.3 Chloride 103 Carbon Dioxide 33 H Anion Gap 8.3 BUN 18 Creatinine 0.70 GFR Calculation 75 BUN/Creatinine Ratio 25.00 H Glucose 101 Calculated Osmolality 280.4 Calcium 8.6 Preliminary micro results at discharge 12/16/16 10:33 Blood Culture - Preliminary Blood No growth at 3 days 12/16/16 10:33 Blood Culture - Preliminary Blood No growth at 3 days DS: Provider Date of admission: 12/16/16 13:15 Primary care physician: . No PCP Attending physician on admission: Cristhian Carranza MD Consults: 12/16/16 14:56 Consult to Case Mgmt/Social Srvs [CONS] Routine Reason for Case Mgmt/Social Srvs: Discharge Planning Discharging clinician: Cristhian Carranza MD
[2016-12-20] MEDS: THIAMINE 100 MG TABLET PO SCH (10:05)
[2016-12-20] MEDS: NICOTINE 21 MG/24 HR PATCH TRANSDERM SCH (10:05)
[2016-12-20] MEDS: QUEtiapine 25 MG TABLET PO SCH (10:06)
[2016-12-20] MEDS: CITALOPRAM 20 MG TABLET PO SCH (10:06)
[2016-12-20] MEDS: VITAMIN E 400 UNIT CAPSULE PO SCH (10:09)
[2016-12-20] MEDS: FERROUS SULFATE 325 MG TABLET PO SCH (10:09)
[2016-12-20] MEDS: POTASSIUM CHLORIDE 10 MEQ TABLET PO SCH (10:09)
[2016-12-20] MEDS: DOCUSATE SODIUM 100 MG CAPSULE PO SCH (10:09)
[2016-12-20] MEDS: ROSUVASTATIN 10 MG TABLET PO SCH (10:10)
[2016-12-20] MEDS: traMADol 50 MG TABLET PO SCH (10:10)
[2016-12-20] MEDS: PANTOPRAZOLE 40 MG TABLET PO SCH (10:10)
[2016-12-20] MEDS: FOLIC ACID 1 MG TABLET PO SCH (10:10)
[2016-12-20] MEDS: MEMANTINE 10 MG TABLET PO SCH (10:10)
[2016-12-20] MEDS: amLODIPine 5 MG TABLET PO SCH (10:10)
[2016-12-20] MEDS: predniSONE 10 MG TABLET PO SCH (10:10)
[2016-12-20] MEDS: MULTIVITAMIN (BEROCCA) TABLET PO SCH (10:10)
== END 2016-12-20 10:35 | disposition home or self-care (01) | DRG 190 ==
LOC: N.ED 09:59 → N.EDINP 13:15 → N.TELEN 13:48
PROVIDERS: ADMIT Internal Medicine; ATTEND Internal Medicine

== ENCOUNTER 2018-08-16 19:37 | Inpatient (IN) ==
[2018-08-16] MEDS ORDERED: ALBUTEROL/IPRATROPIUM 3 ML NEB RESP TX STA (21:31)
[2018-08-16] MEDS ORDERED: methylPREDNISolone SOD SUC 125 MG/2 ML VIAL IV STA (21:32)
[2018-08-16 21:53] LABS: VBG Base Excess 3.3 MEQ/L (0-4); VBG HCO3 27.1 MEQ/L (24-28); VBG Oxygen Saturation 89.8 %; VBG PH 7.362; VBG PO2 61.1 MMHG (17-40)
[2018-08-16 22:38] LABS: Basophils % 0.7 % (0.0-0.8); Eosinophils # 0.1 10*3/uL (0.0-0.87); Eosinophils % 1.6 % (0.00-10.9); Hematocrit 44.9 VOL% (35.7-47.0); Hemoglobin 13.8 GM/DL (12.0-16.0); Immature Granulocytes % 0.4 %; Immature Granulocytes Absolute 0.02 #; Lymphocytes # 1.1 10*3/uL (1.4-4.0); Lymphocytes % 19.7 % (21.3-54.2); Mean Corpuscular HGB Conc 30.7 GM/DL (32-36); Mean Corpuscular Volume 98.7 FL (87-102); Monocytes % 8.2 % (1.7-12.7); Neutrophils % 69.4 % (38.7-73.9); Platelet Count 222 T/CUMM (130-400); Red Blood Count 4.55 MC/CUMM (3.8-5.5); Red Cell Distribution Width 14.7 % (9.3-17.3); White Blood Count 5.5 T/CUMM (4-12)
[2018-08-16] MEDS ORDERED: ALBUTEROL/IPRATROPIUM 3 ML NEB RESP TX PRN (23:11)
[2018-08-16 23:24] LABS: Alanine Aminotransferase 11 U/L (13-56); Albumin 3.2 G/DL (3.4-5.0); Alkaline Phosphatase 54 U/L (45-117); Aspartate Amino Transferase 20 U/L (0-37); Bilirubin,Total < 0.39 MG/DL (0.2-1.0); Blood Urea Nitrogen 19 MG/DL (7-18); Calcium 8.8 MG/DL (8.5-10.1); Glucose 94 MG/DL (74-106); Osmolality,Calculated 282.3 MOS/KG (273-304); Total Protein 7.4 G/DL (6.4-8.3)
[2018-08-17] MEDS: cefTRIAXone 1,000 MG in SYRINGE 1 EACH IV SCH (01:53)
[2018-08-17] MEDS ORDERED: methylPREDNISolone SOD SUC 125 MG/2 ML VIAL IM SCH (09:00)
[2018-08-17] MEDS ORDERED: ALBUTEROL SULFATE 2.5 MG INH SCH (09:00)
[2018-08-17] MEDS: QUEtiapine 25 MG TABLET PO SCH (09:02)
[2018-08-17] MEDS: CYANOCOBALAMIN 500 MCG TABLET PO SCH (09:02)
[2018-08-17] MEDS: amLODIPine 5 MG TABLET PO SCH (09:02)
[2018-08-17] MEDS: ROSUVASTATIN 10 MG TABLET PO SCH (09:02)
[2018-08-17] MEDS: CITALOPRAM 40 MG TABLET PO SCH (09:02)
[2018-08-17] MEDS: FOLIC ACID 1 MG TABLET PO SCH (09:02)
[2018-08-17] MEDS: PANTOPRAZOLE 40 MG TABLET PO SCH ×2 (09:02→20:49)
[2018-08-17] MEDS: FERROUS SULFATE 325 MG TABLET PO SCH ×2 (09:02→20:49)
[2018-08-17] MEDS: ASPIRIN EC 81 MG TABLET PO SCH (09:02)
[2018-08-17] MEDS: POTASSIUM CHLORIDE 10 MEQ TABLET PO SCH (09:02)
[2018-08-17] MEDS: MEMANTINE 10 MG TABLET PO SCH ×2 (09:02→20:49)
[2018-08-17] MEDS: ENOXAPARIN 40 MG/0.4 ML SYRINGE SUBCUT SCH (09:09)
[2018-08-17] MEDS: methylPREDNISolone SOD SUC 40 MG/1 ML VIAL IV SCH ×2 (09:11→16:39)
[2018-08-17] MEDS: ALBUTEROL/IPRATROPIUM 3 ML NEB RESP TX SCH ×2 (13:50→19:24)
[2018-08-17] MEDS: NICOTINE 14 MG/24 HR PATCH TRANSDERM PRN (19:46)
[2018-08-17] MEDS: DONEPEZIL 10 MG TABLET PO SCH (20:50)
[2018-08-18] MEDS: cefTRIAXone 1,000 MG in SYRINGE 1 EACH IV SCH (01:53)
[2018-08-18] MEDS: methylPREDNISolone SOD SUC 40 MG/1 ML VIAL IV SCH ×3 (01:57→20:29)
[2018-08-18 04:44] LABS: Hematocrit 40.2 VOL% (35.7-47.0); Hemoglobin 12.3 GM/DL (12.0-16.0); Immature Granulocytes % 0.5 %; Immature Granulocytes Absolute 0.02 #; Lymphocytes # 0.3 10*3/uL (1.4-4.0); Lymphocytes % 6.8 % (21.3-54.2); Mean Corpuscular HGB Conc 30.6 GM/DL (32-36); Mean Corpuscular Volume 97.6 FL (87-102); Mean Platelet Volume 9.9 FL (9.6-12.0); Monocytes % 3.4 % (1.7-12.7); Neutrophils % 89.3 % (38.7-73.9); Platelet Count 202 T/CUMM (130-400); Red Blood Count 4.12 MC/CUMM (3.8-5.5); Red Cell Distribution Width 14.3 % (9.3-17.3); White Blood Count 4.4 T/CUMM (4-12)
[2018-08-18 05:16] LABS: Calcium 8.9 MG/DL (8.5-10.1); Osmolality,Calculated 288.1 MOS/KG (273-304)
[2018-08-18] MEDS: traMADol 50 MG TABLET PO PRN ×2 (05:52→20:34)
[2018-08-18 06:12] LABS: Lymphocytes 6 % (20-55); Segmented Neutrophils 89 % (50-85); Total Cells Counted 100
[2018-08-18 06:13] LABS: Anisocytosis Slight; Microcytosis Slight; Ovalocytes Slight
[2018-08-18 06:14] LABS: Platelet Estimate Normal
[2018-08-18] MEDS: LEVOTHYROXINE 75 MCG TABLET PO SCH (06:31)
[2018-08-18] MEDS: ALBUTEROL/IPRATROPIUM 3 ML NEB RESP TX SCH ×4 (07:05→19:17)
[2018-08-18] MEDS: ROSUVASTATIN 10 MG TABLET PO SCH (09:12)
[2018-08-18] MEDS: FOLIC ACID 1 MG TABLET PO SCH (09:12)
[2018-08-18] MEDS: ASPIRIN EC 81 MG TABLET PO SCH (09:13)
[2018-08-18] MEDS: POTASSIUM CHLORIDE 10 MEQ TABLET PO SCH (09:13)
[2018-08-18] MEDS: CITALOPRAM 40 MG TABLET PO SCH (09:13)
[2018-08-18] MEDS: FERROUS SULFATE 325 MG TABLET PO SCH ×2 (09:14→20:30)
[2018-08-18] MEDS: QUEtiapine 25 MG TABLET PO SCH (09:14)
[2018-08-18] MEDS: amLODIPine 5 MG TABLET PO SCH (09:15)
[2018-08-18] MEDS: PANTOPRAZOLE 40 MG TABLET PO SCH ×2 (09:15→20:30)
[2018-08-18] MEDS: CYANOCOBALAMIN 500 MCG TABLET PO SCH (09:15)
[2018-08-18] MEDS: MEMANTINE 10 MG TABLET PO SCH ×2 (09:16→20:30)
[2018-08-18] MEDS: ENOXAPARIN 40 MG/0.4 ML SYRINGE SUBCUT SCH (09:17)
[2018-08-18] MEDS: NICOTINE 14 MG/24 HR PATCH TRANSDERM PRN (09:18)
[2018-08-18] MEDS: METHOCARBAMOL 750 MG TABLET PO PRN (14:08)
[2018-08-18] MEDS: DONEPEZIL 10 MG TABLET PO SCH (20:30)
[2018-08-19] MEDS: ALBUTEROL/IPRATROPIUM 3 ML NEB RESP TX SCH ×4 (00:33→19:16)
[2018-08-19] MEDS: METHOCARBAMOL 750 MG TABLET PO PRN (00:49)
[2018-08-19] MEDS: cefTRIAXone 1,000 MG in SYRINGE 1 EACH IV SCH (00:49)
[2018-08-19 05:14] LABS: Calcium 8.8 MG/DL (8.5-10.1); Osmolality,Calculated 285.4 MOS/KG (273-304)
[2018-08-19] MEDS: LEVOTHYROXINE 75 MCG TABLET PO SCH (06:24)
[2018-08-19] MEDS: traMADol 50 MG TABLET PO PRN (09:10)
[2018-08-19] MEDS: amLODIPine 5 MG TABLET PO SCH (09:10)
[2018-08-19] MEDS: PANTOPRAZOLE 40 MG TABLET PO SCH ×2 (09:12→21:19)
[2018-08-19] MEDS: FOLIC ACID 1 MG TABLET PO SCH (09:12)
[2018-08-19] MEDS: POTASSIUM CHLORIDE 10 MEQ TABLET PO SCH (09:12)
[2018-08-19] MEDS: QUEtiapine 25 MG TABLET PO SCH (09:13)
[2018-08-19] MEDS: MEMANTINE 10 MG TABLET PO SCH ×2 (09:13→21:19)
[2018-08-19] MEDS: CITALOPRAM 40 MG TABLET PO SCH (09:13)
[2018-08-19] MEDS: FERROUS SULFATE 325 MG TABLET PO SCH ×2 (09:13→21:19)
[2018-08-19] MEDS: ROSUVASTATIN 10 MG TABLET PO SCH (09:14)
[2018-08-19] MEDS: CYANOCOBALAMIN 500 MCG TABLET PO SCH (09:14)
[2018-08-19] MEDS: ASPIRIN EC 81 MG TABLET PO SCH (09:14)
[2018-08-19] MEDS: methylPREDNISolone SOD SUC 40 MG/1 ML VIAL IV SCH ×2 (09:15→21:19)
[2018-08-19] MEDS: ENOXAPARIN 40 MG/0.4 ML SYRINGE SUBCUT SCH (09:18)
[2018-08-19] MEDS: NICOTINE 14 MG/24 HR PATCH TRANSDERM PRN (14:28)
[2018-08-19] MEDS: DONEPEZIL 10 MG TABLET PO SCH (21:19)
[2018-08-20] MEDS: cefTRIAXone 1,000 MG in SYRINGE 1 EACH IV SCH (01:21)
[2018-08-20] MEDS: ALBUTEROL/IPRATROPIUM 3 ML NEB RESP TX SCH ×2 (01:25→06:55)
[2018-08-20] MEDS: traMADol 50 MG TABLET PO PRN (04:51)
[2018-08-20 08:55] VITALS: BP 147/61
[2018-08-20] MEDS: MEMANTINE 10 MG TABLET PO SCH (09:02)
[2018-08-20] MEDS: CITALOPRAM 40 MG TABLET PO SCH (09:02)
[2018-08-20] MEDS: amLODIPine 5 MG TABLET PO SCH (09:02)
[2018-08-20] MEDS: CYANOCOBALAMIN 500 MCG TABLET PO SCH (09:02)
[2018-08-20] MEDS: ROSUVASTATIN 10 MG TABLET PO SCH (09:02)
[2018-08-20] MEDS: POTASSIUM CHLORIDE 10 MEQ TABLET PO SCH (09:02)
[2018-08-20] MEDS: FOLIC ACID 1 MG TABLET PO SCH (09:02)
[2018-08-20] MEDS: ASPIRIN EC 81 MG TABLET PO SCH (09:02)
[2018-08-20] MEDS: QUEtiapine 25 MG TABLET PO SCH (09:02)
[2018-08-20] MEDS: PANTOPRAZOLE 40 MG TABLET PO SCH (09:02)
[2018-08-20] MEDS: FERROUS SULFATE 325 MG TABLET PO SCH (09:02)
[2018-08-20] MEDS: LEVOTHYROXINE 75 MCG TABLET PO SCH (09:02)
[2018-08-20] MEDS: ENOXAPARIN 40 MG/0.4 ML SYRINGE SUBCUT SCH (09:04)
[2018-08-20] MEDS: methylPREDNISolone SOD SUC 40 MG/1 ML VIAL IV SCH (09:04)
[2018-08-20] MEDS: NICOTINE 14 MG/24 HR PATCH TRANSDERM PRN (09:08)
== END 2018-08-20 09:22 | disposition home health service (06) | DRG 191 ==
LOC: N.ED 19:37 → N.EDINP 19:37 → N.4E 08-17 02:43
PROVIDERS: ADMIT Internal Medicine; ATTEND Internal Medicine

== ENCOUNTER 2021-01-19 11:37 | Inpatient (IN) ==
[2021-01-19] MEDS ORDERED: ONDANSETRON 4 MG/2 ML VIAL IV PRN (11:41)
[2021-01-19] MEDS ORDERED: SODIUM CHLORIDE 0.9% 1,000 ML IV PRN (11:45)
[2021-01-19] MEDS ORDERED: PANTOPRAZOLE 40 MG TABLET PO SCH ×2 (12:00→21:00)
[2021-01-19] MEDS ORDERED: NON-FORMULARY MEDICATION (Albuterol Sulfate [Ventolin Hfa] 90 MCG/PUFF HFA aerosol inhaler INH PRN (13:23)
[2021-01-19] MEDS ORDERED: ALBUTEROL 2.5 MG/3 ML NEB RESP TX PRN (13:23)
[2021-01-19 13:49] LABS: Basophils % 0.4 % (0.0-0.8); Hematocrit 23.6 VOL% (35.7-47.0); Immature Granulocytes % 0.7 %; Immature Granulocytes Absolute 0.06 #; Lymphocytes # 0.3 10*3/uL (1.4-4.0); Lymphocytes % 2.8 % (21.3-54.2); Mean Corpuscular HGB Conc 23.3 GM/DL (32-36); Mean Corpuscular Volume 73.1 FL (87-102); Mean Platelet Volume 11.1 FL (9.6-12.0); Monocytes % 2.8 % (1.7-12.7); NRBC # 0.11 10*3/uL; Neutrophils % 93.3 % (38.7-73.9); Platelet Count 316 T/CUMM (130-400); Red Blood Count 3.23 MC/CUMM (3.8-5.5); Red Cell Distribution Width 19.7 % (9.3-17.3); White Blood Count 9.2 T/CUMM (4-12)
[2021-01-19] MEDS: ALBUTEROL 2.5 MG/3 ML NEB RESP TX SCH ×2 (14:00→19:50)
[2021-01-19 14:06] LABS: % Iron Saturation 3.2 % (18-50); Ferritin 4.2 ng/mL (8-252)
[2021-01-19 14:08] LABS: Hemoglobin 5.5 GM/DL (12.0-16.0)
[2021-01-19] MEDS ORDERED: FUROSEMIDE 40 MG/4 ML VIAL IV ONE (15:00)
[2021-01-19 15:06] LABS: Lymphocytes 1 % (20-55); Nucleated Red Blood Cells 1 (0-5); Segmented Neutrophils 97 % (50-85); Total Cells Counted 100
[2021-01-19 15:12] LABS: Ovalocytes Few
[2021-01-19 15:13] LABS: Anisocytosis Slight; Elliptocytes Few; Hypochromasia Slight; Stomatocytes Slight
[2021-01-19 15:14] LABS: Platelet Estimate Adequate; Schistocytes Slight
[2021-01-19] MEDS: METHOCARBAMOL 750 MG TABLET PO PRN (15:18)
[2021-01-19] MEDS: CITALOPRAM 40 MG TABLET PO SCH (20:48)
[2021-01-19] MEDS: POTASSIUM CHLORIDE 10 MEQ TABLET PO SCH (20:48)
[2021-01-19] MEDS: MEMANTINE 10 MG TABLET PO SCH (20:48)
[2021-01-19] MEDS: PANTOPRAZOLE 40 MG TABLET PO SCH (20:49)
[2021-01-19] MEDS: DONEPEZIL 10 MG TABLET PO SCH (20:49)
[2021-01-19] MEDS: amLODIPine 5 MG TABLET PO SCH (20:49)
[2021-01-19] MEDS: ROSUVASTATIN 10 MG TABLET PO SCH (20:49)
[2021-01-19] MEDS: DOCUSATE SODIUM 100 MG CAPSULE PO SCH (20:49)
[2021-01-19 23:42] LABS: Hematocrit 31.1 VOL% (35.7-47.0)
[2021-01-19 23:45] LABS: Hemoglobin 8.5 GM/DL (12.0-16.0)
[2021-01-20] MEDS: METHOCARBAMOL 750 MG TABLET PO PRN ×2 (01:29→18:56)
[2021-01-20] MEDS: LEVOTHYROXINE 75 MCG TABLET PO SCH (05:41)
[2021-01-20 06:42] LABS: Calcium 8.6 MG/DL (8.5-10.1); Osmolality,Calculated 283.1 MOS/KG (273-304); Potassium 3.3 MMOL/L (3.5-5.1)
[2021-01-20 06:46] LABS: Basophils # 0.1 10*3/uL (0.0-0.2); Basophils % 0.7 % (0.0-0.8); Eosinophils % 0.4 % (0.00-10.9); Hematocrit 30.6 VOL% (35.7-47.0); Immature Granulocytes % 0.6 %; Immature Granulocytes Absolute 0.04 #; Lymphocytes # 0.9 10*3/uL (1.4-4.0); Lymphocytes % 13.2 % (21.3-54.2); Mean Corpuscular HGB Conc 27.5 GM/DL (32-36); Mean Corpuscular Volume 73.6 FL (87-102); Mean Platelet Volume 11.2 FL (9.6-12.0); Monocytes % 15.7 % (1.7-12.7); NRBC # 0.07 10*3/uL; Neutrophils % 69.4 % (38.7-73.9); Platelet Count 232 T/CUMM (130-400); Red Blood Count 4.16 MC/CUMM (3.8-5.5); Red Cell Distribution Width 19.8 % (9.3-17.3); White Blood Count 6.9 T/CUMM (4-12)
[2021-01-20 06:47] LABS: Hemoglobin 8.4 GM/DL (12.0-16.0)
[2021-01-20 06:55] LABS: Eosinophils 1 % (0-10); Hypochromasia 1+; Lymphocytes 13 % (20-55); Microcytosis 1+; Nucleated Red Blood Cells 1 (0-5); Platelet Estimate Adequate; Segmented Neutrophils 74 % (50-85); Total Cells Counted 100
[2021-01-20] MEDS: ALBUTEROL 2.5 MG/3 ML NEB RESP TX SCH ×4 (07:53→20:50)
[2021-01-20] MEDS: POTASSIUM CHLORIDE 10 MEQ TABLET PO SCH (08:31)
[2021-01-20] MEDS: CALCIUM (CARBONATE)/VITAMIN D 600 MG-400 UNIT TABLET PO SCH (08:32)
[2021-01-20] MEDS: predniSONE 10 MG TABLET PO SCH (08:32)
[2021-01-20] MEDS: PANTOPRAZOLE 40 MG TABLET PO SCH ×2 (08:32→22:25)
[2021-01-20] MEDS: MEMANTINE 10 MG TABLET PO SCH ×2 (08:32→22:25)
[2021-01-20] MEDS: FOLIC ACID 1 MG TABLET PO SCH (08:32)
[2021-01-20] MEDS: POTASSIUM CHLORIDE 20 MEQ TABLET PO SCH ×2 (08:50→22:25)
[2021-01-20] MEDS: CYANOCOBALAMIN 500 MCG TABLET PO SCH (08:51)
[2021-01-20] MEDS: DOCUSATE SODIUM 100 MG CAPSULE PO SCH ×2 (08:51→22:26)
[2021-01-20] MEDS: CITALOPRAM 40 MG TABLET PO SCH (22:25)
[2021-01-20] MEDS: ROSUVASTATIN 10 MG TABLET PO SCH (22:25)
[2021-01-20] MEDS: amLODIPine 5 MG TABLET PO SCH (22:26)
[2021-01-20] MEDS: DONEPEZIL 10 MG TABLET PO SCH (22:26)
[2021-01-20] MEDS: ACETAMINOPHEN 325 MG TABLET PO PRN (23:09)
[2021-01-21] MEDS: ACETAMINOPHEN 325 MG TABLET PO PRN (05:42)
[2021-01-21] MEDS: ALBUTEROL 2.5 MG/3 ML NEB RESP TX SCH ×4 (06:50→20:25)
[2021-01-21 06:54] LABS: Calcium 8.3 MG/DL (8.5-10.1); Osmolality,Calculated 292.6 MOS/KG (273-304); Potassium 3.4 MMOL/L (3.5-5.1)
[2021-01-21] MEDS: LEVOTHYROXINE 75 MCG TABLET PO SCH (06:58)
[2021-01-21 07:13] LABS: Basophils # 0.1 10*3/uL (0.0-0.2); Basophils % 0.9 % (0.0-0.8); Eosinophils % 0.4 % (0.00-10.9); Hematocrit 30.7 VOL% (35.7-47.0); Hemoglobin 8.5 GM/DL (12.0-16.0); Immature Granulocytes % 0.4 %; Immature Granulocytes Absolute 0.02 #; Lymphocytes # 0.8 10*3/uL (1.4-4.0); Lymphocytes % 14.1 % (21.3-54.2); Mean Corpuscular HGB Conc 27.7 GM/DL (32-36); Mean Corpuscular Volume 75.8 FL (87-102); Monocytes % 14.3 % (1.7-12.7); NRBC # 0.05 10*3/uL; Neutrophils % 69.9 % (38.7-73.9); Platelet Count 218 T/CUMM (130-400); Red Blood Count 4.05 MC/CUMM (3.8-5.5); Red Cell Distribution Width 20.3 % (9.3-17.3); White Blood Count 5.6 T/CUMM (4-12)
[2021-01-21] MEDS: CYANOCOBALAMIN 500 MCG TABLET PO SCH (08:46)
[2021-01-21] MEDS: DOCUSATE SODIUM 100 MG CAPSULE PO SCH ×2 (08:47→20:11)
[2021-01-21] MEDS: FOLIC ACID 1 MG TABLET PO SCH (08:47)
[2021-01-21] MEDS: POTASSIUM CHLORIDE 20 MEQ TABLET PO SCH ×2 (08:47→20:10)
[2021-01-21] MEDS: CALCIUM (CARBONATE)/VITAMIN D 600 MG-400 UNIT TABLET PO SCH (08:47)
[2021-01-21] MEDS: predniSONE 10 MG TABLET PO SCH (08:47)
[2021-01-21] MEDS: MEMANTINE 10 MG TABLET PO SCH ×2 (08:47→20:11)
[2021-01-21] MEDS: PANTOPRAZOLE 40 MG TABLET PO SCH ×2 (08:47→20:10)
[2021-01-21] MEDS: METHOCARBAMOL 750 MG TABLET PO PRN ×2 (10:20→20:03)
[2021-01-21] MEDS: POTASSIUM CHLORIDE INJ 10 MEQ in SODIUM CHLORIDE 0.45% 1,000 ML IV SCH (11:19)
[2021-01-21] MEDS: amLODIPine 5 MG TABLET PO SCH (20:10)
[2021-01-21] MEDS: DONEPEZIL 10 MG TABLET PO SCH (20:10)
[2021-01-21] MEDS: CITALOPRAM 40 MG TABLET PO SCH (20:10)
[2021-01-21] MEDS: ROSUVASTATIN 10 MG TABLET PO SCH (20:10)
[2021-01-22 06:29] LABS: Calcium 8.5 MG/DL (8.5-10.1); Osmolality,Calculated 280.3 MOS/KG (273-304); Potassium 3.4 MMOL/L (3.5-5.1)
[2021-01-22] MEDS: LEVOTHYROXINE 75 MCG TABLET PO SCH (06:36)
[2021-01-22 06:41] LABS: Basophils % 0.7 % (0.0-0.8); Eosinophils # 0.1 10*3/uL (0.0-0.87); Hemoglobin 8.2 GM/DL (12.0-16.0); Immature Granulocytes % 0.3 %; Immature Granulocytes Absolute 0.02 #; Lymphocytes # 0.7 10*3/uL (1.4-4.0); Lymphocytes % 11.1 % (21.3-54.2); Mean Corpuscular HGB Conc 27.3 GM/DL (32-36); Mean Corpuscular Volume 75.6 FL (87-102); Monocytes % 11.6 % (1.7-12.7); NRBC # 0.03 10*3/uL; Neutrophils % 75.3 % (38.7-73.9); Platelet Count 187 T/CUMM (130-400); Red Blood Count 3.97 MC/CUMM (3.8-5.5); Red Cell Distribution Width 21.1 % (9.3-17.3); White Blood Count 6.1 T/CUMM (4-12)
[2021-01-22 06:44] LABS: Hypochromasia 1+; Microcytosis 2+; Ovalocytes Few
[2021-01-22 06:45] LABS: Platelet Estimate Adequate; Polychromasia Slight
[2021-01-22] MEDS: ALBUTEROL 2.5 MG/3 ML NEB RESP TX SCH ×4 (07:45→19:35)
[2021-01-22] MEDS: MEMANTINE 10 MG TABLET PO SCH ×2 (11:14→20:37)
[2021-01-22] MEDS: POTASSIUM CHLORIDE 20 MEQ TABLET PO SCH ×2 (11:14→20:36)
[2021-01-22] MEDS: FOLIC ACID 1 MG TABLET PO SCH (11:14)
[2021-01-22] MEDS: DOCUSATE SODIUM 100 MG CAPSULE PO SCH ×2 (11:14→20:37)
[2021-01-22] MEDS: CALCIUM (CARBONATE)/VITAMIN D 600 MG-400 UNIT TABLET PO SCH (11:14)
[2021-01-22] MEDS: PANTOPRAZOLE 40 MG TABLET PO SCH ×2 (11:15→20:36)
[2021-01-22] MEDS: CYANOCOBALAMIN 500 MCG TABLET PO SCH (11:15)
[2021-01-22] MEDS: predniSONE 10 MG TABLET PO SCH (11:15)
[2021-01-22] MEDS ORDERED: LIDOCAINE 2% 5 ML VIAL ONE (14:17)
[2021-01-22] MEDS ORDERED: propofoL 200 MG/20 ML VIAL IV ONE (14:17)
[2021-01-22] MEDS ORDERED: ETOMIDATE 20 MG/10 ML VIAL IV ONE (14:17)
[2021-01-22] MEDS: METHOCARBAMOL 750 MG TABLET PO PRN (15:36)
[2021-01-22] MEDS ORDERED: BISACODYL 5 MG TABLET PO ONE (16:00)
[2021-01-22] MEDS: POTASSIUM CHLORIDE INJ 10 MEQ in SODIUM CHLORIDE 0.45% 1,000 ML IV SCH (16:27)
[2021-01-22] MEDS ORDERED: POLYETHYLENE GLYCOL POWDER 255 GM BOTTLE PO ONE (18:00)
[2021-01-22] MEDS: CITALOPRAM 40 MG TABLET PO SCH (20:36)
[2021-01-22] MEDS: ROSUVASTATIN 10 MG TABLET PO SCH (20:36)
[2021-01-22] MEDS: ACETAMINOPHEN 325 MG TABLET PO PRN (20:36)
[2021-01-22] MEDS: amLODIPine 5 MG TABLET PO SCH (20:37)
[2021-01-22] MEDS: DONEPEZIL 10 MG TABLET PO SCH (20:37)
[2021-01-23] MEDS ORDERED: POLYETHYLENE GLYCOL POWDER 255 GM BOTTLE PO ONE (05:00)
[2021-01-23] MEDS: LEVOTHYROXINE 75 MCG TABLET PO SCH (05:21)
[2021-01-23 05:42] LABS: INR 1.1; PT Patient Result 11.7 SECS (10.5-12.0)
[2021-01-23 05:54] LABS: Calcium 8.6 MG/DL (8.5-10.1); Osmolality,Calculated 278.3 MOS/KG (273-304); Potassium 3.7 MMOL/L (3.5-5.1)
[2021-01-23 06:29] LABS: Basophils % 0.5 % (0.0-0.8); Eosinophils # 0.1 10*3/uL (0.0-0.87); Eosinophils % 2.1 % (0.00-10.9); Hematocrit 31.4 VOL% (35.7-47.0); Immature Granulocytes % 0.5 %; Immature Granulocytes Absolute 0.03 #; Lymphocytes # 0.6 10*3/uL (1.4-4.0); Mean Corpuscular HGB Conc 27.1 GM/DL (32-36); Mean Corpuscular Volume 76.6 FL (87-102); Mean Platelet Volume 11.1 FL (9.6-12.0); Monocytes % 15.2 % (1.7-12.7); Neutrophils % 72.7 % (38.7-73.9); Platelet Count 205 T/CUMM (130-400); Red Cell Distribution Width 21.4 % (9.3-17.3); White Blood Count 6.3 T/CUMM (4-12)
[2021-01-23 06:31] LABS: Hemoglobin 8.5 GM/DL (12.0-16.0)
[2021-01-23] MEDS: ALBUTEROL 2.5 MG/3 ML NEB RESP TX SCH ×4 (07:36→20:04)
[2021-01-23] MEDS: LACTATED RINGERS 1,000 ML IV SCH ×2 (07:45→08:26)
[2021-01-23] MEDS ORDERED: LACTATED RINGERS 1,000 ML IV SCH (08:00)
[2021-01-23] MEDS: MEMANTINE 10 MG TABLET PO SCH ×2 (10:03→20:01)
[2021-01-23] MEDS: FOLIC ACID 1 MG TABLET PO SCH (10:03)
[2021-01-23] MEDS: predniSONE 10 MG TABLET PO SCH (10:03)
[2021-01-23] MEDS: DOCUSATE SODIUM 100 MG CAPSULE PO SCH ×2 (10:03→20:00)
[2021-01-23] MEDS: PANTOPRAZOLE 40 MG TABLET PO SCH ×2 (10:03→20:01)
[2021-01-23] MEDS: POTASSIUM CHLORIDE 20 MEQ TABLET PO SCH ×2 (10:03→20:00)
[2021-01-23] MEDS: CALCIUM (CARBONATE)/VITAMIN D 600 MG-400 UNIT TABLET PO SCH (10:03)
[2021-01-23] MEDS: CYANOCOBALAMIN 500 MCG TABLET PO SCH (10:04)
[2021-01-23] MEDS ORDERED: ETOMIDATE 20 MG/10 ML VIAL IV ONE (13:57)
[2021-01-23] MEDS ORDERED: propofoL 200 MG/20 ML VIAL IV ONE (13:57)
[2021-01-23] MEDS ORDERED: LIDOCAINE 2% 5 ML VIAL ONE (13:57)
[2021-01-23] MEDS: METHOCARBAMOL 750 MG TABLET PO PRN (15:43)
[2021-01-23] MEDS: CITALOPRAM 40 MG TABLET PO SCH (20:00)
[2021-01-23] MEDS: ACETAMINOPHEN 325 MG TABLET PO PRN (20:00)
[2021-01-23] MEDS: ROSUVASTATIN 10 MG TABLET PO SCH (20:00)
[2021-01-23] MEDS: DONEPEZIL 10 MG TABLET PO SCH (20:00)
[2021-01-23] MEDS: amLODIPine 5 MG TABLET PO SCH (20:01)
[2021-01-24] MEDS: POTASSIUM CHLORIDE INJ 10 MEQ in SODIUM CHLORIDE 0.45% 1,000 ML IV SCH (01:52)
[2021-01-24] MEDS: METHOCARBAMOL 750 MG TABLET PO PRN (04:20)
[2021-01-24] MEDS: LEVOTHYROXINE 75 MCG TABLET PO SCH (06:08)
[2021-01-24] MEDS: ALBUTEROL 2.5 MG/3 ML NEB RESP TX SCH (07:23)
[2021-01-24 07:57] VITALS: BP 139/41
[2021-01-24] MEDS: CALCIUM (CARBONATE)/VITAMIN D 600 MG-400 UNIT TABLET PO SCH (09:39)
[2021-01-24] MEDS: MEMANTINE 10 MG TABLET PO SCH (09:39)
[2021-01-24] MEDS: DOCUSATE SODIUM 100 MG CAPSULE PO SCH (09:39)
[2021-01-24] MEDS: predniSONE 10 MG TABLET PO SCH (09:39)
[2021-01-24] MEDS: FOLIC ACID 1 MG TABLET PO SCH (09:39)
[2021-01-24] MEDS: POTASSIUM CHLORIDE 20 MEQ TABLET PO SCH (09:39)
[2021-01-24] MEDS: PANTOPRAZOLE 40 MG TABLET PO SCH (09:39)
[2021-01-24] MEDS: CYANOCOBALAMIN 500 MCG TABLET PO SCH (09:39)
== END 2021-01-24 10:57 | disposition home or self-care (01) | DRG 812 ==
LOC: N.5E → OBSVTOIN 12:35
PROVIDERS: ADMIT Internal Medicine; ATTEND Internal Medicine
PROC: COLSIRP (2021-01-23 12:05)

== ENCOUNTER 2021-10-19 11:44 | Inpatient (IN) ==
[2021-10-19] MEDS ORDERED: ONDANSETRON 4 MG/2 ML VIAL IV PRN (12:00)
[2021-10-19] MEDS ORDERED: SODIUM CHLORIDE 0.9% 1,000 ML IV PRN (12:04)
[2021-10-19] MEDS ORDERED: LORATADINE 10 MG TABLET PO PRN (12:07)
[2021-10-19] MEDS ORDERED: ALBUTEROL 2.5 MG/3 ML NEB RESP TX PRN (12:07)
[2021-10-19] MEDS ORDERED: ALBUTEROL 2.5 MG/3 ML NEB RESP TX SCH (13:00)
[2021-10-19 14:30] LABS: Basophils % 0.1 % (0.0-0.8); Hematocrit 21.9 VOL% (35.7-47.0); Hemoglobin 6.6 GM/DL (12.0-16.0); Immature Granulocytes Absolute 0.14 #; Lymphocytes # 0.4 10*3/uL (1.4-4.0); Lymphocytes % 2.9 % (21.3-54.2); Mean Corpuscular HGB Conc 30.1 GM/DL (32-36); Mean Platelet Volume 10.6 FL (9.6-12.0); Monocytes # 0.7 10*3/uL (0.11-0.8); Monocytes % 5.1 % (1.7-12.7); NRBC # 0.08 10*3/uL; Neutrophils % 90.9 % (38.7-73.9); Platelet Count 256 T/CUMM (130-400); Red Blood Count 2.19 MC/CUMM (3.8-5.5); Red Cell Distribution Width 14.6 % (9.3-17.3); White Blood Count 13.7 T/CUMM (4-12)
[2021-10-19 14:54] LABS: Ferritin 46.2 ng/mL (8-252)
[2021-10-19 14:57] LABS: Lymphocytes 1 % (20-55); Total Cells Counted 100
[2021-10-19 14:58] LABS: Platelet Estimate Adequate
[2021-10-19] MEDS: PANTOPRAZOLE 40 MG TABLET PO SCH (16:47)
[2021-10-19] MEDS: ALBUTEROL 2.5 MG/3 ML NEB RESP TX SCH (20:16)
[2021-10-19] MEDS: CITALOPRAM 40 MG TABLET PO SCH (20:34)
[2021-10-19] MEDS: METHOCARBAMOL 750 MG TABLET PO PRN (20:34)
[2021-10-19] MEDS: MAGNESIUM CHLORIDE 64 MG TABLET PO SCH (20:34)
[2021-10-19] MEDS: DONEPEZIL 10 MG TABLET PO SCH (20:35)
[2021-10-19] MEDS: DOCUSATE SODIUM 100 MG CAPSULE PO SCH (20:35)
[2021-10-19] MEDS: amLODIPine 5 MG TABLET PO SCH (20:35)
[2021-10-19] MEDS: ROSUVASTATIN 10 MG TABLET PO SCH (20:35)
[2021-10-19] MEDS: MEMANTINE 10 MG TABLET PO SCH (20:35)
[2021-10-19] MEDS ORDERED: FUROSEMIDE 40 MG/4 ML VIAL IV ONE (22:50)
[2021-10-20 05:57] LABS: Basophils % 0.2 % (0.0-0.8); Eosinophils % 0.4 % (0.00-10.9); Hematocrit 30.8 VOL% (35.7-47.0); Hemoglobin 9.6 GM/DL (12.0-16.0); Immature Granulocytes % 0.7 %; Immature Granulocytes Absolute 0.08 #; Lymphocytes # 0.9 10*3/uL (1.4-4.0); Lymphocytes % 8.6 % (21.3-54.2); Mean Corpuscular HGB Conc 31.2 GM/DL (32-36); Mean Corpuscular Volume 97.5 FL (87-102); Mean Platelet Volume 10.7 FL (9.6-12.0); Monocytes # 1.3 10*3/uL (0.11-0.8); Monocytes % 11.9 % (1.7-12.7); NRBC # 0.05 10*3/uL; Neutrophils % 78.2 % (38.7-73.9); Platelet Count 220 T/CUMM (130-400); Red Blood Count 3.16 MC/CUMM (3.8-5.5); Red Cell Distribution Width 15.4 % (9.3-17.3)
[2021-10-20 06:48] LABS: Albumin 3.2 G/DL (3.4-5.0); Bilirubin,Total 0.6 MG/DL (0.20-1.00); Calcium 8.5 MG/DL (8.5-10.1); Osmolality,Calculated 283.1 MOS/KG (273-304); Potassium 3.5 MMOL/L (3.5-5.1); Total Protein 6.3 G/DL (6.4-8.2)
[2021-10-20] MEDS: ALBUTEROL 2.5 MG/3 ML NEB RESP TX SCH ×4 (07:07→19:15)
[2021-10-20] MEDS: LEVOTHYROXINE 75 MCG TABLET PO SCH (07:32)
[2021-10-20] MEDS: PANTOPRAZOLE 40 MG TABLET PO SCH ×2 (08:55→17:13)
[2021-10-20] MEDS: DOCUSATE SODIUM 100 MG CAPSULE PO SCH ×2 (08:55→21:09)
[2021-10-20] MEDS: MAGNESIUM CHLORIDE 64 MG TABLET PO SCH ×2 (08:55→21:09)
[2021-10-20] MEDS: FOLIC ACID 1 MG TABLET PO SCH (08:56)
[2021-10-20] MEDS: predniSONE 10 MG TABLET PO SCH (08:56)
[2021-10-20] MEDS: CALCIUM (CARBONATE)/VITAMIN D 600 MG-400 UNIT TABLET PO SCH (08:56)
[2021-10-20] MEDS: MEMANTINE 10 MG TABLET PO SCH ×2 (08:56→21:09)
[2021-10-20] MEDS: METHOCARBAMOL 750 MG TABLET PO PRN (08:58)
[2021-10-20] MEDS: ACETAMINOPHEN 325 MG TABLET PO PRN (19:32)
[2021-10-20] MEDS: CITALOPRAM 40 MG TABLET PO SCH (21:09)
[2021-10-20] MEDS: amLODIPine 5 MG TABLET PO SCH (21:09)
[2021-10-20] MEDS: ROSUVASTATIN 10 MG TABLET PO SCH (21:09)
[2021-10-20] MEDS: DONEPEZIL 10 MG TABLET PO SCH (21:09)
[2021-10-21 05:21] LABS: Basophils % 0.2 % (0.0-0.8); Eosinophils # 0.1 10*3/uL (0.0-0.87); Eosinophils % 0.6 % (0.00-10.9); Hematocrit 30.6 VOL% (35.7-47.0); Hemoglobin 9.5 GM/DL (12.0-16.0); Immature Granulocytes % 0.6 %; Immature Granulocytes Absolute 0.05 #; Lymphocytes # 0.9 10*3/uL (1.4-4.0); Lymphocytes % 10.9 % (21.3-54.2); Mean Corpuscular Volume 97.1 FL (87-102); Mean Platelet Volume 10.4 FL (9.6-12.0); Monocytes # 1.1 10*3/uL (0.11-0.8); Monocytes % 12.6 % (1.7-12.7); Neutrophils % 75.1 % (38.7-73.9); Platelet Count 229 T/CUMM (130-400); Red Blood Count 3.15 MC/CUMM (3.8-5.5); Red Cell Distribution Width 15.5 % (9.3-17.3); White Blood Count 8.6 T/CUMM (4-12)
[2021-10-21] MEDS: LEVOTHYROXINE 75 MCG TABLET PO SCH (05:51)
[2021-10-21] MEDS: ALBUTEROL 2.5 MG/3 ML NEB RESP TX SCH ×4 (07:20→19:25)
[2021-10-21] MEDS: PANTOPRAZOLE 40 MG TABLET PO SCH ×2 (09:49→16:15)
[2021-10-21] MEDS: CALCIUM (CARBONATE)/VITAMIN D 600 MG-400 UNIT TABLET PO SCH (09:49)
[2021-10-21] MEDS: FOLIC ACID 1 MG TABLET PO SCH (09:49)
[2021-10-21] MEDS: predniSONE 10 MG TABLET PO SCH (09:49)
[2021-10-21] MEDS: MAGNESIUM CHLORIDE 64 MG TABLET PO SCH ×2 (09:49→21:48)
[2021-10-21] MEDS: DOCUSATE SODIUM 100 MG CAPSULE PO SCH ×2 (09:50→21:48)
[2021-10-21] MEDS: METHOCARBAMOL 750 MG TABLET PO PRN ×2 (09:50→19:20)
[2021-10-21] MEDS: MEMANTINE 10 MG TABLET PO SCH ×2 (09:50→21:48)
[2021-10-21] MEDS: CITALOPRAM 40 MG TABLET PO SCH (21:48)
[2021-10-21] MEDS: DONEPEZIL 10 MG TABLET PO SCH (21:48)
[2021-10-21] MEDS: ROSUVASTATIN 10 MG TABLET PO SCH (21:49)
[2021-10-21] MEDS: amLODIPine 5 MG TABLET PO SCH (21:49)
[2021-10-22 05:10] LABS: Basophils % 0.2 % (0.0-0.8); Eosinophils # 0.1 10*3/uL (0.0-0.87); Eosinophils % 0.7 % (0.00-10.9); Hematocrit 29.5 VOL% (35.7-47.0); Immature Granulocytes % 0.7 %; Immature Granulocytes Absolute 0.07 #; Lymphocytes # 0.9 10*3/uL (1.4-4.0); Lymphocytes % 8.8 % (21.3-54.2); Mean Corpuscular HGB Conc 30.5 GM/DL (32-36); Mean Platelet Volume 10.6 FL (9.6-12.0); Monocytes # 1.2 10*3/uL (0.11-0.8); NRBC # 0.02 10*3/uL; Neutrophils % 78.6 % (38.7-73.9); Platelet Count 244 T/CUMM (130-400); Red Blood Count 3.01 MC/CUMM (3.8-5.5); Red Cell Distribution Width 14.9 % (9.3-17.3); White Blood Count 10.7 T/CUMM (4-12)
[2021-10-22] MEDS: LEVOTHYROXINE 75 MCG TABLET PO SCH (06:30)
[2021-10-22] MEDS: ALBUTEROL 2.5 MG/3 ML NEB RESP TX SCH ×4 (07:19→19:49)
[2021-10-22] MEDS ORDERED: LACTATED RINGERS 1,000 ML IV SCH (09:55)
[2021-10-22] MEDS ORDERED: LIDOCAINE 2% 5 ML VIAL ONE (10:38)
[2021-10-22] MEDS ORDERED: propofoL 200 MG/20 ML VIAL IV ONE (10:38)
[2021-10-22] MEDS: METHOCARBAMOL 750 MG TABLET PO PRN ×2 (11:57→21:42)
[2021-10-22] MEDS: MEMANTINE 10 MG TABLET PO SCH ×2 (11:57→21:28)
[2021-10-22] MEDS: PANTOPRAZOLE 40 MG TABLET PO SCH ×2 (11:57→15:53)
[2021-10-22] MEDS: MAGNESIUM CHLORIDE 64 MG TABLET PO SCH ×2 (11:57→21:27)
[2021-10-22] MEDS: predniSONE 10 MG TABLET PO SCH (11:57)
[2021-10-22] MEDS: FOLIC ACID 1 MG TABLET PO SCH (12:12)
[2021-10-22] MEDS: DOCUSATE SODIUM 100 MG CAPSULE PO SCH ×2 (12:12→21:28)
[2021-10-22] MEDS: CALCIUM (CARBONATE)/VITAMIN D 600 MG-400 UNIT TABLET PO SCH (12:12)
[2021-10-22] MEDS: ACETAMINOPHEN 325 MG TABLET PO PRN (15:53)
[2021-10-22] MEDS: CITALOPRAM 40 MG TABLET PO SCH (21:27)
[2021-10-22] MEDS: DONEPEZIL 10 MG TABLET PO SCH (21:28)
[2021-10-22] MEDS: amLODIPine 5 MG TABLET PO SCH (21:28)
[2021-10-22] MEDS: ROSUVASTATIN 10 MG TABLET PO SCH (21:28)
[2021-10-23] MEDS: ACETAMINOPHEN 325 MG TABLET PO PRN ×2 (03:25→11:56)
[2021-10-23 05:25] LABS: Basophils % 0.3 % (0.0-0.8); Eosinophils % 0.1 % (0.00-10.9); Hemoglobin 8.5 GM/DL (12.0-16.0); Immature Granulocytes % 0.4 %; Immature Granulocytes Absolute 0.04 #; Lymphocytes # 0.2 10*3/uL (1.4-4.0); Lymphocytes % 1.8 % (21.3-54.2); Mean Corpuscular HGB Conc 29.3 GM/DL (32-36); Mean Corpuscular Volume 99.3 FL (87-102); Mean Platelet Volume 10.5 FL (9.6-12.0); Monocytes # 0.9 10*3/uL (0.11-0.8); Monocytes % 7.7 % (1.7-12.7); Neutrophils % 89.7 % (38.7-73.9); Platelet Count 218 T/CUMM (130-400); Red Blood Count 2.92 MC/CUMM (3.8-5.5); Red Cell Distribution Width 14.3 % (9.3-17.3); White Blood Count 11.4 T/CUMM (4-12)
[2021-10-23] MEDS: LEVOTHYROXINE 75 MCG TABLET PO SCH (05:36)
[2021-10-23 05:45] LABS: Lymphocytes 3 % (20-55); Nucleated Red Blood Cells 1 /100 WBC (0-5); Total Cells Counted 100
[2021-10-23 05:46] LABS: Platelet Estimate Normal
[2021-10-23 05:49] LABS: Calcium 8.5 MG/DL (8.5-10.1); Osmolality,Calculated 279.4 MOS/KG (273-304); Potassium 3.2 MMOL/L (3.5-5.1)
[2021-10-23] MEDS: METHOCARBAMOL 750 MG TABLET PO PRN (08:37)
[2021-10-23] MEDS: FOLIC ACID 1 MG TABLET PO SCH (08:37)
[2021-10-23] MEDS: MEMANTINE 10 MG TABLET PO SCH (08:37)
[2021-10-23] MEDS: PANTOPRAZOLE 40 MG TABLET PO SCH (08:37)
[2021-10-23] MEDS: predniSONE 10 MG TABLET PO SCH (08:38)
[2021-10-23] MEDS: CALCIUM (CARBONATE)/VITAMIN D 600 MG-400 UNIT TABLET PO SCH (08:38)
[2021-10-23] MEDS: DOCUSATE SODIUM 100 MG CAPSULE PO SCH (08:38)
[2021-10-23] MEDS: MAGNESIUM CHLORIDE 64 MG TABLET PO SCH (08:38)
[2021-10-23] MEDS ORDERED: POTASSIUM CHLORIDE 20 MEQ TABLET PO PRN (08:42)
[2021-10-23] MEDS ORDERED: NYSTATIN 500,000 UNIT/5 ML UDCUP SWISH/SWAL SCH (09:00)
[2021-10-23 11:42] LABS: Bacteria,Urine Occasional /HPF (Few); Mucus,Urine Few /LPF (Occasional); RBC,Urine <1 /HPF (0-4); Squamous Epithelial Cell,Urine Few /HPF (0-10)
[2021-10-23 11:43] LABS: Bilirubin,Urine Negative (Negative); Blood, Urine Trace mg/dL (Negative); Glucose,Urine (UA) Negative (Negative); Ketones,Urine Negative (Negative); Nitrite,Urine Negative (Negative); Protein,Urine Negative (Negative); Urine Appearance Clear (Clear); Urine Color Yellow (Yellow); Urine Specific Gravity 1.025 (1.001-1.035); Urine Urobilinogen 0.2 eU/dL (<2.0); Urine pH 5.5 (4.5-8.0)
[2021-10-23 12:47] VITALS: BP 97/53
== END 2021-10-23 13:35 | disposition home health service (06) | DRG 812 ==
LOC: N.3E → OBSVTOIN 12:43
PROVIDERS: ADMIT Internal Medicine; ATTEND Internal Medicine

== ENCOUNTER 2021-10-24 11:09 | Inpatient (IN) ==
[2021-10-24] MEDS ORDERED: ALBUTEROL NEB SOLN 5 MG/ML 20 ML/BOTTLE CONT NEB STA (12:20)
[2021-10-24] MEDS ORDERED: PIPERACILLIN/TAZOBACTAM 3,375 MG in SODIUM CHLORIDE 0.9% 100 ML IV STA (12:21)
[2021-10-24] MEDS ORDERED: methylPREDNISolone SOD SUC 125 MG/2 ML VIAL IV STA (12:23)
[2021-10-24] MEDS ORDERED: ALBUTEROL 2.5 MG/3 ML NEB RESP TX ONE (12:29)
[2021-10-24 13:03] LABS: Basophils # 0.1 10*3/uL (0.0-0.2); Basophils % 0.3 % (0.0-0.8); Eosinophils % 0.2 % (0.00-10.9); Hematocrit 35.8 VOL% (35.7-47.0); Hemoglobin 11.3 GM/DL (12.0-16.0); Immature Granulocytes % 1.4 %; Immature Granulocytes Absolute 0.29 #; Lymphocytes # 0.4 10*3/uL (1.4-4.0); Mean Corpuscular HGB Conc 31.6 GM/DL (32-36); Mean Corpuscular Volume 95.5 FL (87-102); Monocytes # 1.2 10*3/uL (0.11-0.8); Monocytes % 5.7 % (1.7-12.7); Neutrophils % 90.4 % (38.7-73.9); Platelet Count 223 T/CUMM (130-400); Red Blood Count 3.75 MC/CUMM (3.8-5.5); Red Cell Distribution Width 14.4 % (9.3-17.3); White Blood Count 21.4 T/CUMM (4-12)
[2021-10-24 13:11] LABS: INR 1.2; PT Patient Result 13.5 SECS (10.1-12.1); Partial Thromboplastin Time 28.1 SECS (23.7-32.9)
[2021-10-24 13:31] LABS: Band Neutrophils 2 % (0-10); Metamyelocytes 2 %; Platelet Estimate Adequate; Total Cells Counted 100
[2021-10-24 13:35] LABS: Albumin 2.8 G/DL (3.4-5.0); Bilirubin,Total 0.8 MG/DL (0.20-1.00); Calcium 9.6 MG/DL (8.5-10.1); Osmolality,Calculated 267.2 MOS/KG (273-304); Potassium 4.1 MMOL/L (3.5-5.1); Total Protein 6.4 G/DL (6.4-8.2)
[2021-10-24] MEDS ORDERED: ASPIRIN 325 MG TABLET PO STA (13:56)
[2021-10-24] MEDS ORDERED: ENOXAPARIN 60 MG/0.6 ML SYRINGE SUBCUT STA (13:56)
[2021-10-24 14:17] LABS: Amorphous Crystals,Urine Occasional /HPF (Few); Bacteria,Urine Many /HPF (Few); Mucus,Urine Occasional /LPF (Occasional); Squamous Epithelial Cell,Urine Occasional /HPF (0-10)
[2021-10-24 14:19] LABS: Urine Appearance Slightly Cloudy (Clear); Urine Color Yellow (Yellow); Urine Specific Gravity >= 1.030 (1.001-1.035)
[2021-10-24 14:20] LABS: Bilirubin,Urine Small mg/dL (Negative); Blood, Urine Large mg/dL (Negative); Glucose,Urine (UA) Negative (Negative); Ketones,Urine Trace mg/dL (Negative); Nitrite,Urine Negative (Negative); Protein,Urine 100 mg/dL (Negative)
[2021-10-24] MEDS ORDERED: SODIUM CHLORIDE 0.9% 1,800 ML IV ONE (14:21)
[2021-10-24] MEDS ORDERED: ONDANSETRON 4 MG/2 ML VIAL IV PRN (18:26)
[2021-10-24] MEDS: DOCUSATE SODIUM 100 MG CAPSULE PO SCH (21:48)
[2021-10-24] MEDS: PIPERACILLIN/TAZOBACTAM 3,375 MG in SODIUM CHLORIDE 0.9% 100 ML IV SCH (21:48)
[2021-10-24] MEDS: methylPREDNISolone SOD SUC 125 MG/2 ML VIAL IV SCH (21:48)
[2021-10-24] MEDS: SODIUM CHLORIDE 0.9% 1,000 ML IV SCH (21:48)
[2021-10-25] MEDS: methylPREDNISolone SOD SUC 125 MG/2 ML VIAL IV SCH ×4 (00:12→19:52)
[2021-10-25 00:46] LABS: Basophils % 0.2 % (0.0-0.8); Hemoglobin 9.6 GM/DL (12.0-16.0); Immature Granulocytes % 1.7 %; Immature Granulocytes Absolute 0.19 #; Lymphocytes # 0.2 10*3/uL (1.4-4.0); Lymphocytes % 1.8 % (21.3-54.2); Mean Corpuscular Volume 95.1 FL (87-102); Monocytes # 0.3 10*3/uL (0.11-0.8); Monocytes % 2.7 % (1.7-12.7); Neutrophils % 93.6 % (38.7-73.9); Platelet Count 178 T/CUMM (130-400); Red Blood Count 3.26 MC/CUMM (3.8-5.5); Red Cell Distribution Width 14.2 % (9.3-17.3); White Blood Count 11.1 T/CUMM (4-12)
[2021-10-25 00:59] LABS: Calcium 8.7 MG/DL (8.5-10.1); Osmolality,Calculated 282.7 MOS/KG (273-304); Potassium 3.2 MMOL/L (3.5-5.1)
[2021-10-25] MEDS: ALBUTEROL 2.5 MG/3 ML NEB RESP TX SCH ×7 (01:09→19:20)
[2021-10-25 01:23] LABS: Lymphocytes 1 % (20-55); Platelet Estimate Adequate; Total Cells Counted 100
[2021-10-25] MEDS: SODIUM CHLORIDE 0.9% 1,000 ML IV SCH ×3 (02:31→19:53)
[2021-10-25] MEDS: PIPERACILLIN/TAZOBACTAM 3,375 MG in SODIUM CHLORIDE 0.9% 100 ML IV SCH ×3 (04:26→21:55)
[2021-10-25] MEDS ORDERED: PANTOPRAZOLE 40 MG TABLET PO SCH (06:30)
[2021-10-25] MEDS ORDERED: LORATADINE 10 MG TABLET PO PRN (06:55)
[2021-10-25] MEDS ORDERED: CLOBETASOL 0.05% CREAM 15 GM TUBE TOP PRN (06:55)
[2021-10-25] MEDS ORDERED: DICLOFENAC 1% GEL 100 GM TUBE TOP PRN (06:55)
[2021-10-25] MEDS ORDERED: METHOCARBAMOL 750 MG TABLET PO PRN (06:55)
[2021-10-25] MEDS ORDERED: NON-FORMULARY MEDICATION (Albuterol Sulfate [Ventolin Hfa] 90 MCG/PUFF HFA aerosol inhaler INH PRN (06:55)
[2021-10-25] MEDS: CYANOCOBALAMIN 500 MCG TABLET PO SCH (08:10)
[2021-10-25] MEDS: PANTOPRAZOLE 40 MG TABLET PO SCH ×2 (08:10→20:58)
[2021-10-25] MEDS: MAGNESIUM CHLORIDE 64 MG TABLET PO SCH ×2 (08:10→20:58)
[2021-10-25] MEDS: LEVOTHYROXINE 75 MCG TABLET PO SCH (08:11)
[2021-10-25] MEDS: FERROUS SULFATE 325 MG TABLET PO SCH ×2 (08:11→20:57)
[2021-10-25] MEDS: DOCUSATE SODIUM 100 MG CAPSULE PO SCH ×2 (08:11→20:58)
[2021-10-25] MEDS: MEMANTINE 10 MG TABLET PO SCH ×2 (08:11→20:58)
[2021-10-25] MEDS: CALCIUM (CARBONATE)/VITAMIN D 600 MG-400 UNIT TABLET PO SCH (08:11)
[2021-10-25] MEDS: POTASSIUM CHLORIDE 10 MEQ TABLET PO SCH (08:11)
[2021-10-25] MEDS: FOLIC ACID 1 MG TABLET PO SCH (08:11)
[2021-10-25] MEDS: ASPIRIN EC 81 MG TABLET PO SCH (08:11)
[2021-10-25] MEDS: ENOXAPARIN 60 MG/0.6 ML SYRINGE SUBCUT SCH ×2 (08:12→20:59)
[2021-10-25] MEDS: NYSTATIN 500,000 UNIT/5 ML UDCUP SWISH/SWAL SCH ×3 (08:12→20:59)
[2021-10-25 08:27] LABS: CKMB % 0.46 %
[2021-10-25 08:37] LABS: High Sensitive Troponin I* 1304.1 ng/L (0-54)
[2021-10-25] MEDS ORDERED: ALBUTEROL 2.5 MG/3 ML NEB RESP TX SCH (09:00)
[2021-10-25 11:30] LABS: CKMB % 0.52 %; High Sensitive Troponin I* 1396.4 ng/L (0-54)
[2021-10-25 13:49] LABS: CKMB % 0.49 %; High Sensitive Troponin I* 1562.1 ng/L (0-54)
[2021-10-25] MEDS: METHOCARBAMOL 750 MG TABLET PO PRN (20:57)
[2021-10-25] MEDS: CITALOPRAM 20 MG TABLET PO SCH (20:58)
[2021-10-25] MEDS: ROSUVASTATIN 10 MG TABLET PO SCH (20:58)
[2021-10-25] MEDS: amLODIPine 5 MG TABLET PO SCH (20:58)
[2021-10-25] MEDS: DONEPEZIL 10 MG TABLET PO SCH (20:58)
[2021-10-25] MEDS ORDERED: amLODIPine 5 MG TABLET PO SCH (21:00)
[2021-10-26] MEDS: SODIUM CHLORIDE 0.9% 1,000 ML IV SCH ×2 (02:11→12:26)
[2021-10-26] MEDS: PIPERACILLIN/TAZOBACTAM 3,375 MG in SODIUM CHLORIDE 0.9% 100 ML IV SCH ×3 (05:15→21:02)
[2021-10-26] MEDS: methylPREDNISolone SOD SUC 125 MG/2 ML VIAL IV SCH ×4 (05:15→17:24)
[2021-10-26 05:16] LABS: Basophils % 0.1 % (0.0-0.8); Hematocrit 27.6 VOL% (35.7-47.0); Hemoglobin 8.4 GM/DL (12.0-16.0); Immature Granulocytes % 0.8 %; Immature Granulocytes Absolute 0.12 #; Lymphocytes # 0.2 10*3/uL (1.4-4.0); Lymphocytes % 1.5 % (21.3-54.2); Mean Corpuscular HGB Conc 30.4 GM/DL (32-36); Mean Corpuscular Volume 97.2 FL (87-102); Mean Platelet Volume 11.8 FL (9.6-12.0); Monocytes # 0.5 10*3/uL (0.11-0.8); Monocytes % 3.4 % (1.7-12.7); NRBC # 0.03 10*3/uL; Neutrophils % 94.2 % (38.7-73.9); Platelet Count 146 T/CUMM (130-400); Red Blood Count 2.84 MC/CUMM (3.8-5.5); Red Cell Distribution Width 14.3 % (9.3-17.3); White Blood Count 14.9 T/CUMM (4-12)
[2021-10-26 05:39] LABS: Calcium 8.2 MG/DL (8.5-10.1); Osmolality,Calculated 291.7 MOS/KG (273-304); Potassium 3.5 MMOL/L (3.5-5.1)
[2021-10-26 05:51] LABS: Anisocytosis 1+; Band Neutrophils 22 % (0-10); Lymphocytes 1 % (20-55); Macrocytosis Slight; Platelet Estimate Adequate; Total Cells Counted 100
[2021-10-26] MEDS: SOTALOL 80 MG TABLET PO SCH ×2 (08:39→21:00)
[2021-10-26] MEDS: DOCUSATE SODIUM 100 MG CAPSULE PO SCH ×2 (08:39→20:59)
[2021-10-26] MEDS: ASPIRIN EC 81 MG TABLET PO SCH (08:39)
[2021-10-26] MEDS: POTASSIUM CHLORIDE 10 MEQ TABLET PO SCH (08:39)
[2021-10-26] MEDS: CALCIUM (CARBONATE)/VITAMIN D 600 MG-400 UNIT TABLET PO SCH (08:39)
[2021-10-26] MEDS: FERROUS SULFATE 325 MG TABLET PO SCH ×2 (08:39→21:01)
[2021-10-26] MEDS: LEVOTHYROXINE 75 MCG TABLET PO SCH (08:39)
[2021-10-26] MEDS: MAGNESIUM CHLORIDE 64 MG TABLET PO SCH ×2 (08:39→21:01)
[2021-10-26] MEDS: PANTOPRAZOLE 40 MG TABLET PO SCH ×2 (08:39→21:01)
[2021-10-26] MEDS: APIXABAN 2.5 MG TABLET PO SCH ×2 (08:40→21:00)
[2021-10-26] MEDS: CYANOCOBALAMIN 500 MCG TABLET PO SCH (08:40)
[2021-10-26] MEDS: NYSTATIN 500,000 UNIT/5 ML UDCUP SWISH/SWAL SCH ×4 (08:40→21:01)
[2021-10-26] MEDS: MEMANTINE 10 MG TABLET PO SCH ×2 (08:40→21:01)
[2021-10-26] MEDS: FOLIC ACID 1 MG TABLET PO SCH (08:40)
[2021-10-26 09:00] LABS: Thyroid Stimulating Hormone 1.76 uIU/ml (0.358-3.74)
[2021-10-26] MEDS ORDERED: NEBIVOLOL 5 MG TABLET PO SCH (09:00)
[2021-10-26] MEDS: DILTIAZEM INJ 100 MG in SODIUM CHLORIDE 0.9% 100 ML IV SCH (09:12)
[2021-10-26] MEDS ORDERED: PHENOL 1.4% THROAT SPRAY 177 ML BOTTLE PO PRN (09:49)
[2021-10-26] MEDS: ALBUTEROL 2.5 MG/3 ML NEB RESP TX SCH ×4 (11:47→19:39)
[2021-10-26] MEDS: METHOCARBAMOL 750 MG TABLET PO PRN ×2 (12:16→20:58)
[2021-10-26] MEDS: ACETAMINOPHEN 325 MG TABLET PO PRN (15:20)
[2021-10-26] MEDS: DONEPEZIL 10 MG TABLET PO SCH (20:58)
[2021-10-26] MEDS: amLODIPine 5 MG TABLET PO SCH (21:00)
[2021-10-26] MEDS: CITALOPRAM 20 MG TABLET PO SCH (21:00)
[2021-10-26] MEDS: ROSUVASTATIN 10 MG TABLET PO SCH (21:01)
[2021-10-27] MEDS: methylPREDNISolone SOD SUC 125 MG/2 ML VIAL IV SCH ×4 (03:41→17:11)
[2021-10-27 05:35] LABS: Basophils % 0.1 % (0.0-0.8); Hematocrit 27.9 VOL% (35.7-47.0); Hemoglobin 8.3 GM/DL (12.0-16.0); Immature Granulocytes % 0.8 %; Immature Granulocytes Absolute 0.07 #; Lymphocytes # 0.3 10*3/uL (1.4-4.0); Lymphocytes % 2.9 % (21.3-54.2); Mean Corpuscular HGB Conc 29.7 GM/DL (32-36); Mean Corpuscular Volume 97.2 FL (87-102); Mean Platelet Volume 12.4 FL (9.6-12.0); Monocytes # 0.4 10*3/uL (0.11-0.8); NRBC # 0.04 10*3/uL; Neutrophils % 92.2 % (38.7-73.9); Platelet Count 143 T/CUMM (130-400); Red Blood Count 2.87 MC/CUMM (3.8-5.5); Red Cell Distribution Width 14.6 % (9.3-17.3); White Blood Count 9.3 T/CUMM (4-12)
[2021-10-27 05:55] LABS: Hypochromia 1+; Lymphocytes 7 % (20-55); Platelet Estimate Adequate; Total Cells Counted 100
[2021-10-27 06:02] LABS: Calcium 8.6 MG/DL (8.5-10.1); Osmolality,Calculated 298.7 MOS/KG (273-304); Potassium 4.3 MMOL/L (3.5-5.1)
[2021-10-27] MEDS: PIPERACILLIN/TAZOBACTAM 3,375 MG in SODIUM CHLORIDE 0.9% 100 ML IV SCH ×3 (06:24→22:08)
[2021-10-27] MEDS: ALBUTEROL 2.5 MG/3 ML NEB RESP TX SCH ×4 (07:11→21:32)
[2021-10-27] MEDS: PANTOPRAZOLE 40 MG TABLET PO SCH ×2 (09:17→22:07)
[2021-10-27] MEDS: FERROUS SULFATE 325 MG TABLET PO SCH ×2 (09:17→22:05)
[2021-10-27] MEDS: ASPIRIN EC 81 MG TABLET PO SCH (09:17)
[2021-10-27] MEDS: CYANOCOBALAMIN 500 MCG TABLET PO SCH (09:17)
[2021-10-27] MEDS: APIXABAN 2.5 MG TABLET PO SCH ×2 (09:17→22:07)
[2021-10-27] MEDS: SOTALOL 80 MG TABLET PO SCH ×2 (09:17→22:07)
[2021-10-27] MEDS: CALCIUM (CARBONATE)/VITAMIN D 600 MG-400 UNIT TABLET PO SCH (09:17)
[2021-10-27] MEDS: POTASSIUM CHLORIDE 10 MEQ TABLET PO SCH (09:17)
[2021-10-27] MEDS: MAGNESIUM CHLORIDE 64 MG TABLET PO SCH ×2 (09:17→22:05)
[2021-10-27] MEDS: FOLIC ACID 1 MG TABLET PO SCH (09:17)
[2021-10-27] MEDS: NYSTATIN 500,000 UNIT/5 ML UDCUP SWISH/SWAL SCH ×4 (09:18→22:05)
[2021-10-27] MEDS: DOCUSATE SODIUM 100 MG CAPSULE PO SCH ×2 (09:18→22:08)
[2021-10-27] MEDS: LEVOTHYROXINE 75 MCG TABLET PO SCH (09:18)
[2021-10-27] MEDS: MEMANTINE 10 MG TABLET PO SCH ×2 (09:18→22:08)
[2021-10-27] MEDS: ACETAMINOPHEN 325 MG TABLET PO PRN (17:11)
[2021-10-27] MEDS: DONEPEZIL 10 MG TABLET PO SCH (22:05)
[2021-10-27] MEDS: amLODIPine 5 MG TABLET PO SCH (22:06)
[2021-10-27] MEDS: ROSUVASTATIN 10 MG TABLET PO SCH (22:07)
[2021-10-27] MEDS: CITALOPRAM 20 MG TABLET PO SCH (22:07)
[2021-10-27] MEDS: DILTIAZEM INJ 100 MG in SODIUM CHLORIDE 0.9% 100 ML IV SCH (23:25)
[2021-10-27] MEDS: SODIUM CHLORIDE 0.9% 1,000 ML IV SCH (23:25)
[2021-10-28] MEDS: methylPREDNISolone SOD SUC 125 MG/2 ML VIAL IV SCH ×3 (01:16→12:00)
[2021-10-28 05:44] LABS: Basophils % 0.1 % (0.0-0.8); Hemoglobin 8.7 GM/DL (12.0-16.0); Immature Granulocytes % 1.1 %; Immature Granulocytes Absolute 0.11 #; Lymphocytes # 0.2 10*3/uL (1.4-4.0); Lymphocytes % 1.8 % (21.3-54.2); Mean Platelet Volume 12.3 FL (9.6-12.0); Monocytes # 0.6 10*3/uL (0.11-0.8); Monocytes % 5.7 % (1.7-12.7); NRBC # 0.05 10*3/uL; Neutrophils % 91.3 % (38.7-73.9); Platelet Count 172 T/CUMM (130-400); Red Cell Distribution Width 14.4 % (9.3-17.3); White Blood Count 10.3 T/CUMM (4-12)
[2021-10-28] MEDS: SODIUM CHLORIDE 0.9% 1,000 ML IV SCH (05:50)
[2021-10-28] MEDS: PIPERACILLIN/TAZOBACTAM 3,375 MG in SODIUM CHLORIDE 0.9% 100 ML IV SCH ×3 (05:58→23:59)
[2021-10-28 06:06] LABS: Calcium 9.5 MG/DL (8.5-10.1); Osmolality,Calculated 304.4 MOS/KG (273-304); Potassium 4.3 MMOL/L (3.5-5.1)
[2021-10-28 06:35] LABS: Hypochromia Slight; Lymphocytes 4 % (20-55); Nucleated Red Blood Cells 1 /100 WBC (0-5); Platelet Estimate Adequate; Total Cells Counted 100
[2021-10-28] MEDS: ALBUTEROL 2.5 MG/3 ML NEB RESP TX SCH ×4 (07:42→19:34)
[2021-10-28] MEDS ORDERED: methylPREDNISolone SOD SUC 40 MG/1 ML VIAL IV ONE (08:22)
[2021-10-28] MEDS ORDERED: FUROSEMIDE 40 MG/4 ML VIAL ONE (08:48)
[2021-10-28] MEDS ORDERED: FUROSEMIDE 40 MG/4 ML VIAL IV ONE (08:49)
[2021-10-28] MEDS ORDERED: FUROSEMIDE 40 MG/4 ML VIAL IM ONE (08:49)
[2021-10-28 08:53] LABS: Arterial Base Excess iSTAT 3 MMOL/L (-2.5-2.5); Arterial Bicarbonate iSTAT 32.9 MMOL/L (20-26); Arterial O2 Saturation iSTAT 75 % (95-100); Arterial PCO2 iSTAT 86 MM HG (35-48); Arterial PO2 iSTAT 51 MM HG (80-95); Arterial Total CO2 iSTAT 35 MMO/L (23-27)
[2021-10-28] MEDS: DILTIAZEM INJ 100 MG in SODIUM CHLORIDE 0.9% 100 ML IV SCH (09:14)
[2021-10-28] MEDS: FERROUS SULFATE 325 MG TABLET PO SCH ×2 (11:58→22:15)
[2021-10-28] MEDS: ASPIRIN EC 81 MG TABLET PO SCH (11:58)
[2021-10-28] MEDS: PANTOPRAZOLE 40 MG TABLET PO SCH ×2 (11:59→22:16)
[2021-10-28] MEDS: POTASSIUM CHLORIDE 10 MEQ TABLET PO SCH (11:59)
[2021-10-28] MEDS: CALCIUM (CARBONATE)/VITAMIN D 600 MG-400 UNIT TABLET PO SCH (11:59)
[2021-10-28] MEDS: SOTALOL 80 MG TABLET PO SCH ×2 (11:59→22:16)
[2021-10-28] MEDS: LEVOTHYROXINE 75 MCG TABLET PO SCH (11:59)
[2021-10-28] MEDS: MAGNESIUM CHLORIDE 64 MG TABLET PO SCH ×2 (11:59→22:16)
[2021-10-28] MEDS: FOLIC ACID 1 MG TABLET PO SCH (11:59)
[2021-10-28] MEDS: APIXABAN 2.5 MG TABLET PO SCH ×2 (11:59→22:16)
[2021-10-28] MEDS: DOCUSATE SODIUM 100 MG CAPSULE PO SCH ×2 (11:59→23:59)
[2021-10-28] MEDS: CYANOCOBALAMIN 500 MCG TABLET PO SCH (11:59)
[2021-10-28] MEDS: MEMANTINE 10 MG TABLET PO SCH ×2 (11:59→22:17)
[2021-10-28] MEDS: NYSTATIN 500,000 UNIT/5 ML UDCUP SWISH/SWAL SCH ×4 (12:00→22:15)
[2021-10-28] MEDS: methylPREDNISolone SOD SUC 40 MG/1 ML VIAL IV SCH (17:47)
[2021-10-28] MEDS: amLODIPine 5 MG TABLET PO SCH (22:15)
[2021-10-28] MEDS: ROSUVASTATIN 10 MG TABLET PO SCH (22:16)
[2021-10-28] MEDS: DONEPEZIL 10 MG TABLET PO SCH (22:17)
[2021-10-28] MEDS: CITALOPRAM 20 MG TABLET PO SCH (22:17)
[2021-10-29] MEDS: methylPREDNISolone SOD SUC 40 MG/1 ML VIAL IV SCH ×4 (01:54→17:15)
[2021-10-29] MEDS: PIPERACILLIN/TAZOBACTAM 3,375 MG in SODIUM CHLORIDE 0.9% 100 ML IV SCH ×3 (05:41→21:15)
[2021-10-29 05:42] LABS: Basophils % 0.1 % (0.0-0.8); Hematocrit 27.8 VOL% (35.7-47.0); Hemoglobin 8.5 GM/DL (12.0-16.0); Immature Granulocytes % 1.1 %; Lymphocytes # 0.2 10*3/uL (1.4-4.0); Lymphocytes % 2.2 % (21.3-54.2); Mean Corpuscular HGB Conc 30.6 GM/DL (32-36); Mean Corpuscular Volume 96.2 FL (87-102); Mean Platelet Volume 12.3 FL (9.6-12.0); Monocytes # 0.6 10*3/uL (0.11-0.8); Monocytes % 6.4 % (1.7-12.7); NRBC # 0.02 10*3/uL; Neutrophils % 90.2 % (38.7-73.9); Platelet Count 173 T/CUMM (130-400); Red Blood Count 2.89 MC/CUMM (3.8-5.5); Red Cell Distribution Width 14.1 % (9.3-17.3)
[2021-10-29 05:58] LABS: Calcium 8.9 MG/DL (8.5-10.1); Osmolality,Calculated 303.3 MOS/KG (273-304); Potassium 3.8 MMOL/L (3.5-5.1)
[2021-10-29 06:03] LABS: Lymphocytes 1 % (20-55); Macrocytosis Slight; Platelet Estimate Adequate; Total Cells Counted 100
[2021-10-29] MEDS: ALBUTEROL 2.5 MG/3 ML NEB RESP TX SCH ×4 (07:10→19:40)
[2021-10-29] MEDS: LEVOTHYROXINE 75 MCG TABLET PO SCH (10:06)
[2021-10-29] MEDS: SOTALOL 80 MG TABLET PO SCH ×2 (10:06→21:14)
[2021-10-29] MEDS: MAGNESIUM CHLORIDE 64 MG TABLET PO SCH ×2 (10:06→21:14)
[2021-10-29] MEDS: NYSTATIN 500,000 UNIT/5 ML UDCUP SWISH/SWAL SCH ×4 (10:06→21:15)
[2021-10-29] MEDS: CYANOCOBALAMIN 500 MCG TABLET PO SCH (10:06)
[2021-10-29] MEDS: POTASSIUM CHLORIDE 10 MEQ TABLET PO SCH (10:06)
[2021-10-29] MEDS: CALCIUM (CARBONATE)/VITAMIN D 600 MG-400 UNIT TABLET PO SCH (10:07)
[2021-10-29] MEDS: PANTOPRAZOLE 40 MG TABLET PO SCH ×2 (10:07→21:15)
[2021-10-29] MEDS: FOLIC ACID 1 MG TABLET PO SCH (10:07)
[2021-10-29] MEDS: ASPIRIN EC 81 MG TABLET PO SCH (10:07)
[2021-10-29] MEDS: APIXABAN 2.5 MG TABLET PO SCH ×2 (10:07→21:15)
[2021-10-29] MEDS: FERROUS SULFATE 325 MG TABLET PO SCH ×2 (10:07→21:14)
[2021-10-29] MEDS: MEMANTINE 10 MG TABLET PO SCH ×2 (10:07→21:14)
[2021-10-29] MEDS: DOCUSATE SODIUM 100 MG CAPSULE PO SCH ×2 (10:34→21:15)
[2021-10-29] MEDS: DILTIAZEM INJ 100 MG in SODIUM CHLORIDE 0.9% 100 ML IV SCH (10:34)
[2021-10-29] MEDS: BACILLUS COAGULANS CAPLET PO SCH (10:54)
[2021-10-29] MEDS: METHOCARBAMOL 750 MG TABLET PO PRN (12:05)
[2021-10-29] MEDS: ROSUVASTATIN 10 MG TABLET PO SCH (21:14)
[2021-10-29] MEDS: CITALOPRAM 20 MG TABLET PO SCH (21:14)
[2021-10-29] MEDS: DONEPEZIL 10 MG TABLET PO SCH (21:14)
[2021-10-29] MEDS: amLODIPine 5 MG TABLET PO SCH (21:15)
[2021-10-30] MEDS: methylPREDNISolone SOD SUC 40 MG/1 ML VIAL IV SCH ×4 (00:01→18:35)
[2021-10-30] MEDS: PIPERACILLIN/TAZOBACTAM 3,375 MG in SODIUM CHLORIDE 0.9% 100 ML IV SCH ×3 (05:04→21:47)
[2021-10-30 05:24] LABS: Basophils % 0.1 % (0.0-0.8); Hematocrit 27.2 VOL% (35.7-47.0); Hemoglobin 8.2 GM/DL (12.0-16.0); Immature Granulocytes % 1.3 %; Immature Granulocytes Absolute 0.11 #; Lymphocytes # 0.3 10*3/uL (1.4-4.0); Lymphocytes % 3.2 % (21.3-54.2); Mean Corpuscular HGB Conc 30.1 GM/DL (32-36); Mean Corpuscular Volume 96.5 FL (87-102); Mean Platelet Volume 12.5 FL (9.6-12.0); Monocytes # 0.5 10*3/uL (0.11-0.8); Monocytes % 5.7 % (1.7-12.7); Neutrophils % 89.7 % (38.7-73.9); Platelet Count 207 T/CUMM (130-400); Red Blood Count 2.82 MC/CUMM (3.8-5.5); Red Cell Distribution Width 14.1 % (9.3-17.3); White Blood Count 8.5 T/CUMM (4-12)
[2021-10-30 05:51] LABS: Calcium 8.5 MG/DL (8.5-10.1); Osmolality,Calculated 295.8 MOS/KG (273-304); Potassium 3.3 MMOL/L (3.5-5.1)
[2021-10-30 05:55] LABS: Anisocytosis 1+; Band Neutrophils 2 % (0-10); Lymphocytes 2 % (20-55); Platelet Estimate Normal; Total Cells Counted 100
[2021-10-30] MEDS: ALBUTEROL 2.5 MG/3 ML NEB RESP TX SCH ×4 (07:20→19:15)
[2021-10-30] MEDS ORDERED: POTASSIUM CHLORIDE 20 MEQ TABLET PO ONE (07:55)
[2021-10-30] MEDS: METHOCARBAMOL 750 MG TABLET PO PRN (10:34)
[2021-10-30] MEDS: ASPIRIN EC 81 MG TABLET PO SCH (10:34)
[2021-10-30] MEDS: BACILLUS COAGULANS CAPLET PO SCH (10:34)
[2021-10-30] MEDS: CALCIUM (CARBONATE)/VITAMIN D 600 MG-400 UNIT TABLET PO SCH (10:35)
[2021-10-30] MEDS: DOCUSATE SODIUM 100 MG CAPSULE PO SCH ×2 (10:35→21:48)
[2021-10-30] MEDS: LEVOTHYROXINE 75 MCG TABLET PO SCH (10:35)
[2021-10-30] MEDS: APIXABAN 2.5 MG TABLET PO SCH ×2 (10:36→21:49)
[2021-10-30] MEDS: LOSARTAN 50 MG TABLET PO SCH (10:36)
[2021-10-30] MEDS: FOLIC ACID 1 MG TABLET PO SCH (10:36)
[2021-10-30] MEDS: FERROUS SULFATE 325 MG TABLET PO SCH ×2 (10:36→21:49)
[2021-10-30] MEDS: POTASSIUM CHLORIDE 10 MEQ TABLET PO SCH (10:37)
[2021-10-30] MEDS: NYSTATIN 500,000 UNIT/5 ML UDCUP SWISH/SWAL SCH ×4 (10:37→21:48)
[2021-10-30] MEDS: MAGNESIUM CHLORIDE 64 MG TABLET PO SCH ×2 (10:37→21:50)
[2021-10-30] MEDS: MEMANTINE 10 MG TABLET PO SCH ×2 (10:37→21:48)
[2021-10-30] MEDS: PANTOPRAZOLE 40 MG TABLET PO SCH ×2 (10:37→21:49)
[2021-10-30] MEDS: CYANOCOBALAMIN 500 MCG TABLET PO SCH (10:38)
[2021-10-30] MEDS: SOTALOL 80 MG TABLET PO SCH ×2 (10:38→21:49)
[2021-10-30] MEDS: DESITIN 4OZ/NYSTATIN 15 GRAM MIXTURE PASTE TOP SCH ×2 (18:34→21:50)
[2021-10-30] MEDS: DILTIAZEM INJ 100 MG in SODIUM CHLORIDE 0.9% 100 ML IV SCH (20:26)
[2021-10-30] MEDS: amLODIPine 5 MG TABLET PO SCH (21:48)
[2021-10-30] MEDS: ROSUVASTATIN 10 MG TABLET PO SCH (21:49)
[2021-10-30] MEDS: CITALOPRAM 20 MG TABLET PO SCH (21:49)
[2021-10-30] MEDS: DONEPEZIL 10 MG TABLET PO SCH (21:49)
[2021-10-31] MEDS: methylPREDNISolone SOD SUC 40 MG/1 ML VIAL IV SCH ×3 (01:37→17:28)
[2021-10-31] MEDS: PIPERACILLIN/TAZOBACTAM 3,375 MG in SODIUM CHLORIDE 0.9% 100 ML IV SCH (04:21)
[2021-10-31 06:34] LABS: Hematocrit 28.2 VOL% (35.7-47.0); Hemoglobin 8.6 GM/DL (12.0-16.0); Immature Granulocytes % 0.9 %; Immature Granulocytes Absolute 0.08 #; Lymphocytes # 0.3 10*3/uL (1.4-4.0); Lymphocytes % 2.9 % (21.3-54.2); Mean Corpuscular HGB Conc 30.5 GM/DL (32-36); Mean Corpuscular Volume 94.6 FL (87-102); Mean Platelet Volume 12.1 FL (9.6-12.0); Monocytes # 0.5 10*3/uL (0.11-0.8); Monocytes % 5.7 % (1.7-12.7); Neutrophils % 90.5 % (38.7-73.9); Platelet Count 227 T/CUMM (130-400); Red Blood Count 2.98 MC/CUMM (3.8-5.5); Red Cell Distribution Width 14.1 % (9.3-17.3)
[2021-10-31 06:58] LABS: Lymphocytes 1 % (20-55); Platelet Estimate Adequate; Total Cells Counted 100
[2021-10-31 06:59] LABS: Calcium 8.7 MG/DL (8.5-10.1); Hypochromia Slight; Microcytosis Slight; Osmolality,Calculated 290.8 MOS/KG (273-304); Potassium 3.6 MMOL/L (3.5-5.1)
[2021-10-31] MEDS: ALBUTEROL 2.5 MG/3 ML NEB RESP TX SCH ×4 (07:30→20:18)
[2021-10-31] MEDS: ASPIRIN EC 81 MG TABLET PO SCH (11:49)
[2021-10-31] MEDS: BACILLUS COAGULANS CAPLET PO SCH (11:49)
[2021-10-31] MEDS: FERROUS SULFATE 325 MG TABLET PO SCH ×2 (11:50→20:39)
[2021-10-31] MEDS: DOCUSATE SODIUM 100 MG CAPSULE PO SCH ×2 (11:50→20:39)
[2021-10-31] MEDS: FOLIC ACID 1 MG TABLET PO SCH (11:50)
[2021-10-31] MEDS: POTASSIUM CHLORIDE 10 MEQ TABLET PO SCH (11:50)
[2021-10-31] MEDS: CALCIUM (CARBONATE)/VITAMIN D 600 MG-400 UNIT TABLET PO SCH (11:50)
[2021-10-31] MEDS: LOSARTAN 50 MG TABLET PO SCH (11:50)
[2021-10-31] MEDS: APIXABAN 2.5 MG TABLET PO SCH ×2 (11:50→20:39)
[2021-10-31] MEDS: NYSTATIN 500,000 UNIT/5 ML UDCUP SWISH/SWAL SCH ×4 (11:51→20:38)
[2021-10-31] MEDS: MAGNESIUM CHLORIDE 64 MG TABLET PO SCH ×2 (11:51→20:39)
[2021-10-31] MEDS: MEMANTINE 10 MG TABLET PO SCH ×2 (11:51→20:39)
[2021-10-31] MEDS: DESITIN 4OZ/NYSTATIN 15 GRAM MIXTURE PASTE TOP SCH ×2 (11:51→20:40)
[2021-10-31] MEDS: PANTOPRAZOLE 40 MG TABLET PO SCH ×2 (11:51→20:39)
[2021-10-31] MEDS: CYANOCOBALAMIN 500 MCG TABLET PO SCH (11:52)
[2021-10-31] MEDS: LEVOTHYROXINE 75 MCG TABLET PO SCH (11:52)
[2021-10-31] MEDS: SOTALOL 80 MG TABLET PO SCH ×2 (11:52→20:39)
[2021-10-31] MEDS: OXACILLIN 2,000 MG in SODIUM CHLORIDE 0.9% 100 ML IV SCH ×4 (12:10→23:39)
[2021-10-31] MEDS: DILTIAZEM INJ 100 MG in SODIUM CHLORIDE 0.9% 100 ML IV SCH (12:41)
[2021-10-31] MEDS: CITALOPRAM 20 MG TABLET PO SCH (20:38)
[2021-10-31] MEDS: DONEPEZIL 10 MG TABLET PO SCH (20:39)
[2021-10-31] MEDS: ROSUVASTATIN 10 MG TABLET PO SCH (20:39)
[2021-10-31] MEDS: amLODIPine 5 MG TABLET PO SCH (20:39)
[2021-11-01] MEDS: methylPREDNISolone SOD SUC 40 MG/1 ML VIAL IV SCH ×3 (00:15→16:36)
[2021-11-01] MEDS: OXACILLIN 2,000 MG in SODIUM CHLORIDE 0.9% 100 ML IV SCH ×5 (03:44→20:29)
[2021-11-01] MEDS ORDERED: SODIUM CHLORIDE 0.9% 500 ML IV SCH (05:00)
[2021-11-01 05:25] LABS: Hematocrit 28.5 VOL% (35.7-47.0); Hemoglobin 8.7 GM/DL (12.0-16.0); Immature Granulocytes Absolute 0.07 #; Lymphocytes # 0.2 10*3/uL (1.4-4.0); Lymphocytes % 3.2 % (21.3-54.2); Mean Corpuscular HGB Conc 30.5 GM/DL (32-36); Mean Corpuscular Volume 95.3 FL (87-102); Mean Platelet Volume 11.9 FL (9.6-12.0); Monocytes # 0.3 10*3/uL (0.11-0.8); Neutrophils % 91.8 % (38.7-73.9); Platelet Count 226 T/CUMM (130-400); Red Blood Count 2.99 MC/CUMM (3.8-5.5); Red Cell Distribution Width 13.9 % (9.3-17.3); White Blood Count 7.2 T/CUMM (4-12)
[2021-11-01 05:44] LABS: Calcium 8.4 MG/DL (8.5-10.1); Osmolality,Calculated 291.7 MOS/KG (273-304); Potassium 3.6 MMOL/L (3.5-5.1)
[2021-11-01 05:53] LABS: Hypochromia Slight; Lymphocytes 4 % (20-55); Microcytosis Slight; Platelet Estimate Adequate; Total Cells Counted 100
[2021-11-01] MEDS: ALBUTEROL 2.5 MG/3 ML NEB RESP TX SCH ×4 (07:05→19:20)
[2021-11-01] MEDS ORDERED: ETOMIDATE 40 MG/20 ML VIAL IV ONE (08:14)
[2021-11-01] MEDS ORDERED: propofoL 200 MG/20 ML VIAL IV ONE (08:14)
[2021-11-01] MEDS ORDERED: LIDOCAINE 2% 5 ML VIAL ONE (08:14)
[2021-11-01] MEDS: BACILLUS COAGULANS CAPLET PO SCH (09:08)
[2021-11-01] MEDS: CALCIUM (CARBONATE)/VITAMIN D 600 MG-400 UNIT TABLET PO SCH (09:08)
[2021-11-01] MEDS: DOCUSATE SODIUM 100 MG CAPSULE PO SCH ×2 (09:08→20:43)
[2021-11-01] MEDS: POTASSIUM CHLORIDE 10 MEQ TABLET PO SCH (09:08)
[2021-11-01] MEDS: LOSARTAN 50 MG TABLET PO SCH (09:09)
[2021-11-01] MEDS: FOLIC ACID 1 MG TABLET PO SCH (09:09)
[2021-11-01] MEDS: FERROUS SULFATE 325 MG TABLET PO SCH ×2 (09:09→20:43)
[2021-11-01] MEDS: CYANOCOBALAMIN 500 MCG TABLET PO SCH (09:09)
[2021-11-01] MEDS: MAGNESIUM CHLORIDE 64 MG TABLET PO SCH ×2 (09:09→20:33)
[2021-11-01] MEDS: LEVOTHYROXINE 75 MCG TABLET PO SCH (09:09)
[2021-11-01] MEDS: MEMANTINE 10 MG TABLET PO SCH ×2 (09:09→20:34)
[2021-11-01] MEDS: PANTOPRAZOLE 40 MG TABLET PO SCH ×2 (09:09→20:33)
[2021-11-01] MEDS: ASPIRIN EC 81 MG TABLET PO SCH (09:10)
[2021-11-01] MEDS: NYSTATIN 500,000 UNIT/5 ML UDCUP SWISH/SWAL SCH ×4 (09:10→20:33)
[2021-11-01] MEDS: SOTALOL 80 MG TABLET PO SCH ×2 (09:10→20:43)
[2021-11-01] MEDS: APIXABAN 2.5 MG TABLET PO SCH ×2 (09:10→20:35)
[2021-11-01] MEDS: DESITIN 4OZ/NYSTATIN 15 GRAM MIXTURE PASTE TOP SCH ×2 (09:11→20:44)
[2021-11-01] MEDS: CITALOPRAM 20 MG TABLET PO SCH (20:33)
[2021-11-01] MEDS: amLODIPine 5 MG TABLET PO SCH (20:35)
[2021-11-01] MEDS: DONEPEZIL 10 MG TABLET PO SCH (20:35)
[2021-11-01] MEDS: ROSUVASTATIN 10 MG TABLET PO SCH (20:44)
[2021-11-02] MEDS: OXACILLIN 2,000 MG in SODIUM CHLORIDE 0.9% 100 ML IV SCH ×6 (00:20→21:04)
[2021-11-02] MEDS: methylPREDNISolone SOD SUC 40 MG/1 ML VIAL IV SCH ×3 (02:44→17:19)
[2021-11-02 05:38] LABS: Calcium 8.7 MG/DL (8.5-10.1); Osmolality,Calculated 281.4 MOS/KG (273-304); Potassium 3.3 MMOL/L (3.5-5.1)
[2021-11-02] MEDS: ALBUTEROL 2.5 MG/3 ML NEB RESP TX SCH ×5 (06:54→19:06)
[2021-11-02] MEDS: SOTALOL 80 MG TABLET PO SCH ×2 (08:25→21:05)
[2021-11-02] MEDS: ASPIRIN EC 81 MG TABLET PO SCH (08:25)
[2021-11-02] MEDS: LOSARTAN 50 MG TABLET PO SCH (08:25)
[2021-11-02] MEDS: MEMANTINE 10 MG TABLET PO SCH ×2 (08:25→21:06)
[2021-11-02] MEDS: POTASSIUM CHLORIDE 10 MEQ TABLET PO SCH (08:25)
[2021-11-02] MEDS: LEVOTHYROXINE 75 MCG TABLET PO SCH (08:25)
[2021-11-02] MEDS: NYSTATIN 500,000 UNIT/5 ML UDCUP SWISH/SWAL SCH ×4 (08:26→21:08)
[2021-11-02] MEDS: APIXABAN 2.5 MG TABLET PO SCH ×2 (08:26→21:05)
[2021-11-02] MEDS: PANTOPRAZOLE 40 MG TABLET PO SCH ×2 (08:26→21:06)
[2021-11-02] MEDS: CALCIUM (CARBONATE)/VITAMIN D 600 MG-400 UNIT TABLET PO SCH (08:44)
[2021-11-02] MEDS: BACILLUS COAGULANS CAPLET PO SCH (08:44)
[2021-11-02] MEDS: DOCUSATE SODIUM 100 MG CAPSULE PO SCH ×2 (08:45→21:07)
[2021-11-02] MEDS: FERROUS SULFATE 325 MG TABLET PO SCH ×2 (08:45→21:07)
[2021-11-02] MEDS: CYANOCOBALAMIN 500 MCG TABLET PO SCH (08:45)
[2021-11-02] MEDS: FOLIC ACID 1 MG TABLET PO SCH (08:45)
[2021-11-02] MEDS: MAGNESIUM CHLORIDE 64 MG TABLET PO SCH ×2 (08:45→21:07)
[2021-11-02] MEDS: DESITIN 4OZ/NYSTATIN 15 GRAM MIXTURE PASTE TOP SCH ×2 (10:11→21:08)
[2021-11-02] MEDS: CITALOPRAM 20 MG TABLET PO SCH (21:05)
[2021-11-02] MEDS: amLODIPine 5 MG TABLET PO SCH (21:06)
[2021-11-02] MEDS: ROSUVASTATIN 10 MG TABLET PO SCH (21:06)
[2021-11-02] MEDS: DONEPEZIL 10 MG TABLET PO SCH (21:07)
[2021-11-03] MEDS: methylPREDNISolone SOD SUC 40 MG/1 ML VIAL IV SCH ×3 (00:14→21:15)
[2021-11-03] MEDS: ACETAMINOPHEN 325 MG TABLET PO PRN ×2 (00:16→14:19)
[2021-11-03] MEDS: OXACILLIN 2,000 MG in SODIUM CHLORIDE 0.9% 100 ML IV SCH ×7 (00:16→23:43)
[2021-11-03] MEDS: METHOCARBAMOL 750 MG TABLET PO PRN ×2 (06:50→21:08)
[2021-11-03] MEDS: ALBUTEROL 2.5 MG/3 ML NEB RESP TX SCH ×4 (07:06→20:00)
[2021-11-03] MEDS: SOTALOL 80 MG TABLET PO SCH ×2 (10:03→21:10)
[2021-11-03] MEDS: PANTOPRAZOLE 40 MG TABLET PO SCH ×2 (10:03→21:09)
[2021-11-03] MEDS: LOSARTAN 50 MG TABLET PO SCH (10:03)
[2021-11-03] MEDS: POTASSIUM CHLORIDE 10 MEQ TABLET PO SCH (10:03)
[2021-11-03] MEDS: MEMANTINE 10 MG TABLET PO SCH ×2 (10:03→21:09)
[2021-11-03] MEDS: NYSTATIN 500,000 UNIT/5 ML UDCUP SWISH/SWAL SCH ×4 (10:04→21:10)
[2021-11-03] MEDS: ASPIRIN EC 81 MG TABLET PO SCH (10:04)
[2021-11-03] MEDS: APIXABAN 2.5 MG TABLET PO SCH ×2 (10:04→21:10)
[2021-11-03] MEDS: LEVOTHYROXINE 75 MCG TABLET PO SCH (10:04)
[2021-11-03] MEDS: DOCUSATE SODIUM 100 MG CAPSULE PO SCH ×2 (10:15→21:15)
[2021-11-03] MEDS: FOLIC ACID 1 MG TABLET PO SCH (10:15)
[2021-11-03] MEDS: FERROUS SULFATE 325 MG TABLET PO SCH ×2 (10:15→21:09)
[2021-11-03] MEDS: CALCIUM (CARBONATE)/VITAMIN D 600 MG-400 UNIT TABLET PO SCH (10:15)
[2021-11-03] MEDS: BACILLUS COAGULANS CAPLET PO SCH (10:15)
[2021-11-03] MEDS: DESITIN 4OZ/NYSTATIN 15 GRAM MIXTURE PASTE TOP SCH ×2 (10:16→21:15)
[2021-11-03] MEDS: MAGNESIUM CHLORIDE 64 MG TABLET PO SCH ×2 (10:16→21:10)
[2021-11-03] MEDS: CYANOCOBALAMIN 500 MCG TABLET PO SCH (10:16)
[2021-11-03] MEDS: ROSUVASTATIN 10 MG TABLET PO SCH (21:09)
[2021-11-03] MEDS: CITALOPRAM 20 MG TABLET PO SCH (21:09)
[2021-11-03] MEDS: amLODIPine 5 MG TABLET PO SCH (21:09)
[2021-11-03] MEDS: DONEPEZIL 10 MG TABLET PO SCH (21:09)
[2021-11-04] MEDS: OXACILLIN 2,000 MG in SODIUM CHLORIDE 0.9% 100 ML IV SCH ×6 (03:23→23:25)
[2021-11-04 05:09] LABS: Basophils % 0.1 % (0.0-0.8); Hematocrit 28.2 VOL% (35.7-47.0); Hemoglobin 8.7 GM/DL (12.0-16.0); Immature Granulocytes % 0.8 %; Immature Granulocytes Absolute 0.11 #; Lymphocytes # 0.3 10*3/uL (1.4-4.0); Lymphocytes % 1.8 % (21.3-54.2); Mean Corpuscular HGB Conc 30.9 GM/DL (32-36); Mean Corpuscular Volume 93.7 FL (87-102); Mean Platelet Volume 12.1 FL (9.6-12.0); Monocytes # 0.6 10*3/uL (0.11-0.8); Monocytes % 4.2 % (1.7-12.7); Neutrophils % 93.1 % (38.7-73.9); Platelet Count 239 T/CUMM (130-400); Red Blood Count 3.01 MC/CUMM (3.8-5.5); Red Cell Distribution Width 14.2 % (9.3-17.3); White Blood Count 14.4 T/CUMM (4-12)
[2021-11-04 05:38] LABS: Calcium 7.8 MG/DL (8.5-10.1); Osmolality,Calculated 286.1 MOS/KG (273-304); Potassium 3.1 MMOL/L (3.5-5.1)
[2021-11-04 05:42] LABS: Lymphocytes 1 % (20-55); Platelet Estimate Normal; Total Cells Counted 100
[2021-11-04] MEDS: METHOCARBAMOL 750 MG TABLET PO PRN ×2 (06:29→21:12)
[2021-11-04] MEDS: ALBUTEROL 2.5 MG/3 ML NEB RESP TX SCH ×4 (07:12→19:53)
[2021-11-04] MEDS: MAGNESIUM CHLORIDE 64 MG TABLET PO SCH ×2 (08:39→21:13)
[2021-11-04] MEDS: BACILLUS COAGULANS CAPLET PO SCH (08:40)
[2021-11-04] MEDS: SOTALOL 80 MG TABLET PO SCH ×2 (08:41→21:13)
[2021-11-04] MEDS: ASPIRIN EC 81 MG TABLET PO SCH (08:42)
[2021-11-04] MEDS: LEVOTHYROXINE 75 MCG TABLET PO SCH (08:42)
[2021-11-04] MEDS: POTASSIUM CHLORIDE 10 MEQ TABLET PO SCH ×2 (08:42→21:14)
[2021-11-04] MEDS: PANTOPRAZOLE 40 MG TABLET PO SCH ×2 (08:43→21:13)
[2021-11-04] MEDS: FERROUS SULFATE 325 MG TABLET PO SCH ×2 (08:43→21:13)
[2021-11-04] MEDS: MEMANTINE 10 MG TABLET PO SCH ×2 (08:44→21:13)
[2021-11-04] MEDS: FOLIC ACID 1 MG TABLET PO SCH (08:44)
[2021-11-04] MEDS: APIXABAN 2.5 MG TABLET PO SCH ×2 (08:44→21:13)
[2021-11-04] MEDS: NYSTATIN 500,000 UNIT/5 ML UDCUP SWISH/SWAL SCH ×4 (08:44→21:14)
[2021-11-04] MEDS: LOSARTAN 50 MG TABLET PO SCH (08:44)
[2021-11-04] MEDS: DOCUSATE SODIUM 100 MG CAPSULE PO SCH ×2 (08:45→21:13)
[2021-11-04] MEDS: CALCIUM (CARBONATE)/VITAMIN D 600 MG-400 UNIT TABLET PO SCH (08:45)
[2021-11-04] MEDS: methylPREDNISolone SOD SUC 40 MG/1 ML VIAL IV SCH ×2 (08:45→21:14)
[2021-11-04] MEDS: CYANOCOBALAMIN 500 MCG TABLET PO SCH (08:46)
[2021-11-04] MEDS: DESITIN 4OZ/NYSTATIN 15 GRAM MIXTURE PASTE TOP SCH ×2 (08:48→21:14)
[2021-11-04] MEDS: DONEPEZIL 10 MG TABLET PO SCH (21:13)
[2021-11-04] MEDS: CITALOPRAM 20 MG TABLET PO SCH (21:13)
[2021-11-04] MEDS: ROSUVASTATIN 10 MG TABLET PO SCH (21:13)
[2021-11-04] MEDS: amLODIPine 5 MG TABLET PO SCH (21:13)
[2021-11-05] MEDS: OXACILLIN 2,000 MG in SODIUM CHLORIDE 0.9% 100 ML IV SCH ×4 (04:06→16:19)
[2021-11-05] MEDS: ALBUTEROL 2.5 MG/3 ML NEB RESP TX SCH ×3 (06:54→15:24)
[2021-11-05] MEDS: NYSTATIN 500,000 UNIT/5 ML UDCUP SWISH/SWAL SCH ×2 (09:01→13:18)
[2021-11-05] MEDS: methylPREDNISolone SOD SUC 40 MG/1 ML VIAL IV SCH (09:01)
[2021-11-05] MEDS: SOTALOL 80 MG TABLET PO SCH (09:02)
[2021-11-05] MEDS: MEMANTINE 10 MG TABLET PO SCH (09:02)
[2021-11-05] MEDS: DOCUSATE SODIUM 100 MG CAPSULE PO SCH (09:02)
[2021-11-05] MEDS: ASPIRIN EC 81 MG TABLET PO SCH (09:02)
[2021-11-05] MEDS: CALCIUM (CARBONATE)/VITAMIN D 600 MG-400 UNIT TABLET PO SCH (09:02)
[2021-11-05] MEDS: MAGNESIUM CHLORIDE 64 MG TABLET PO SCH (09:02)
[2021-11-05] MEDS: FERROUS SULFATE 325 MG TABLET PO SCH (09:02)
[2021-11-05] MEDS: METHOCARBAMOL 750 MG TABLET PO PRN (09:02)
[2021-11-05] MEDS: PANTOPRAZOLE 40 MG TABLET PO SCH (09:02)
[2021-11-05] MEDS: POTASSIUM CHLORIDE 10 MEQ TABLET PO SCH (09:02)
[2021-11-05] MEDS: CYANOCOBALAMIN 500 MCG TABLET PO SCH (09:02)
[2021-11-05] MEDS: BACILLUS COAGULANS CAPLET PO SCH (09:02)
[2021-11-05] MEDS: LOSARTAN 50 MG TABLET PO SCH (09:03)
[2021-11-05] MEDS: LEVOTHYROXINE 75 MCG TABLET PO SCH (09:03)
[2021-11-05] MEDS: FOLIC ACID 1 MG TABLET PO SCH (09:03)
[2021-11-05] MEDS: DESITIN 4OZ/NYSTATIN 15 GRAM MIXTURE PASTE TOP SCH (09:03)
[2021-11-05] MEDS: APIXABAN 2.5 MG TABLET PO SCH (09:03)
[2021-11-05 12:15] VITALS: BP 132/46
== END 2021-11-05 15:50 | DRG 190 ==
LOC: N.ED 11:09 → N.EDINP 13:59 → N.TELES 15:37 → N.TELEN 10-27 16:27
PROVIDERS: ADMIT Internal Medicine; ATTEND Internal Medicine